=== PATIENT | female | born 1990 | race Caucasian/White ===

== ENCOUNTER 2017-03-22 13:48 | Inpatient (IN) | payer MEDICAID ==
[2017-03-22] MEDS ORDERED: Sodium Chloride 0.9% 10 ML Syringe FLUSH PRN ×2 (13:55→14:40)
[2017-03-22] MEDS ORDERED: Sodium Chloride 0.9% 1,000 ML IV SCH (14:00)
--- NOTE | 2017-03-22 14:07 | EDM.PDOC ---
ED HPI GENERAL MEDICAL PROBLEM - General Chief Complaint: [employer] Problem Stated Complaint: [facility] Time Seen by Provider: 03/22/17 13:55 Source of Information: Reports: Patient, EMS History Limitations: Reports: No Limitations - History of Present Illness INITIAL COMMENTS - FREE TEXT/NARRATIVE: The patient woke up with lower abdomen and pelvis pain this morning. This afternoon she passed out. [facility] brought her in and she had a BP in the 70s systolic. She got nearly 1.5Ls of fluid in route. Her BP did respond. They did give her fentanyl on the way here. She is not sure if she is . She is due for her period soon. She is with no history of ectopic . She has no nausea or vomiting. She has no dysuria. She still has her appendix and gallbladder. Onset: Sudden Duration: Hour(s): Location: Reports: Abdomen, Pelvis Quality: Reports: Sharp Severity: Severe Improves with: Reports: None Worsens with: Reports: None Context: Reports: Other (It woke her up) Associated Symptoms: Denies: Cough, Fever/Chills, Nausea/Vomiting, Shortness of Breath Abdomen Pain Score (Numeric/FACES): 5 - Related Data Allergies Allergy/AdvReac Type Severity Reaction Status Date / Time No Known Allergies Allergy Verified 03/22/17 13:49 Home Meds: Home Meds ALPRAZolam [Xanax] 0.25 mg PO DAILY PRN 03/22/17 [History] Escitalopram Oxalate [Lexapro] 25 mg PO DAILY 03/22/17 [History] Past Medical History - Past Health History Medical/Surgical History: Denies Medical/Surgical History Social & Family History - Tobacco Use Smoking Status *Q: Never Smoker Second Hand Smoke Exposure: No - Alcohol Use Days Per Week of Alcohol Use: 0 - Recreational Drug Use Recreational Drug Use: No ED ROS GENERAL - Review of Systems Review Of Systems: See Below Constitutional: Reports: No Symptoms HEENT: Reports: No Symptoms Respiratory: Reports: No Symptoms Cardiovascular: Reports: No Symptoms Endocrine: Reports: No Symptoms GI/Abdominal: Reports: Abdominal Pain. Denies: Diarrhea, Nausea, Vomiting : Reports: Other (Pelvic pain). Denies: Dysuria Musculoskeletal: Reports: No Symptoms ED EXAM, GI/ABD - Physical Exam Exam: See Below Exam Limited By: No Limitations General Appearance: Alert, Mild Distress Ears: Normal External Exam Nose: Normal Inspection Head: Atraumatic, Normocephalic Neck: Normal Inspection Respiratory/Chest: No Respiratory Distress, Lungs Clear, Normal Breath Sounds Cardiovascular: No Edema, No Murmur, Tachycardia GI/Abdominal Exam: Soft, No Organomegaly, Tender (Moderate tenderness to the lower abdomen) Course - Vital Signs Last Recorded V/S: Last Vital Signs Temp 98.3 F 03/22/17 13:50 Pulse 114 H 03/22/17 13:50 Resp 18 03/22/17 13:50 BP 90/58 L 03/22/17 13:50 Pulse Ox - Orders/Labs/Meds Orders: Active Orders 24 hr Category Date Time Status Peripheral IV Care [RC] . DIRECTED Care 03/22/17 13:56 Active PATIENT RETYPE [BBK] Stat Lab 03/22/17 13:57 Results RED BLOOD CELLS LP [BBK] Stat Lab 03/22/17 13:57 Results TYPE AND SCREEN [BBK] Stat Lab 03/22/17 13:57 Results UA W/MICROSCOPIC [URIN] Stat Lab 03/22/17 15:53 Results Sodium Chloride 0.9% [Normal Saline] 1,000 ml Med 03/22/17 14:00 Active IV ASDIRECTED Sodium Chloride 0.9% [Saline Flush] Med 03/22/17 13:55 Active 10 ml FLUSH ASDIRECTED PRN Sodium Chloride 0.9% [Saline Flush] Med 03/22/17 14:40 Active 10 ml FLUSH ONETIME PRN Peripheral IV Insertion Adult [OM.PC] Stat Oth 03/22/17 13:55 Ordered Transfuse PRBC [Transfuse Red Blood Cells] [COMM] Stat Oth 03/22/17 16:10 Ordered Medication Orders Sodium Chloride (Normal Saline) 1,000 mls @ 125 mls/hr IV ASDIRECTED [place] Last Admin: 03/22/17 14:38 Dose: 125 mls/hr Sodium Chloride (Saline Flush) 10 ml FLUSH ASDIRECTED PRN PRN Reason: Keep Vein Open Last Admin: 03/22/17 14:40 Dose: 10 ml Sodium Chloride (Saline Flush) 10 ml FLUSH ONETIME PRN PRN Reason: IV FLUSH Last Admin: 03/22/17 15:41 Dose: 10 ml Labs: Laboratory Tests 03/22/17 03/22/17 03/22/17 Range/Units 13:57 13:57 13:57 WBC 12.73 H (3.98-10.04) K/mm3 RBC 3.78 L (3.98-5.22) M/mm3 Hgb 10.2 L (11.2-15.7) gm/L Hct 31.1 L (34.1-44.9) % MCV 82.3 (79.4-94.8) fl MCH 27.0 (25.6-32.2) pg MCHC 32.8 (32.2-35.5) g/dl RDW Std Deviation 41.2 (36.4-46.3) fL Plt Count 206 (182-369) K/mm3 MPV 10.7 (9.4-12.3) fl Neut % (Auto) 83.9 H (34.0-71.1) % Lymph % (Auto) 8.2 L (19.3-51.7) % [place] % (Auto) 7.4 (4.7-12.5) % Eos % (Auto) 0.2 L (0.7-5.8) Baso % (Auto) 0.1 (0.1-1.2) % Neut # (Auto) 10.69 H (1.56-6.13) K/mm3 Lymph # (Auto) 1.05 L (1.18-3.74) K/mm3 [place] # (Auto) 0.94 H (0.24-0.36) K/mm3 Eos # (Auto) 0.02 L (0.04-0.36) K/mm3 Baso # (Auto) 0.01 (0.01-0.08) K/mm3 Manual Slide Review Abnormal smear Sodium 140 (136-145) mEq/L Potassium 4.9 (3.5-5.1) mEq/L Chloride 110 H (98-107) mEq/L Carbon Dioxide 22 (21-32) mEq/L Anion Gap 12.9 (5-15) BUN 13 (7-18) mg/dL Creatinine 0.7 (0.55-1.02) mg/dL Est Cr Clr Drug Dosing 95.48 mL/min Estimated GFR (MDRD) > 60 (>60) mL/min BUN/Creatinine Ratio 18.6 H (14-18) Glucose 100 (74-106) mg/dL Calcium 7.8 L (8.5-10.1) mg/dL Total Bilirubin 0.2 (0.2-1.0) mg/dL AST 20 (15-37) U/L ALT 24 (14-59) U/L Alkaline Phosphatase 43 L (46-116) U/L Total Protein 6.1 L (6.4-8.2) g/dl Albumin 3.0 L (3.4-5.0) g/dl Globulin 3.1 gm/dL Albumin/Globulin Ratio 1.0 (1-2) Lipase 174 (73-393) U/L HCG, Qual Negative (NEGATIVE) HCG, Quant mIU/mL Urine Color (Yellow) Urine Appearance (Clear) Urine pH (5.0-8.0) Ur Specific [place] (1.005-1.030) Urine Protein (Negative) Urine Glucose (UA) (Negative) Urine Ketones (Negative) Urine Occult Blood (Negative) Urine Nitrite (Negative) Urine Bilirubin (Negative) Urine Urobilinogen (0.2-1.0) Ur Leukocyte Esterase (Negative) Blood Type Gel Antibody Screen Crossmatch 03/22/17 03/22/17 03/22/17 Range/Units 13:57 13:57 15:53 WBC (3.98-10.04) K/mm3 RBC (3.98-5.22) M/mm3 Hgb (11.2-15.7) gm/L Hct (34.1-44.9) % MCV (79.4-94.8) fl MCH (25.6-32.2) pg MCHC (32.2-35.5) g/dl RDW Std Deviation (36.4-46.3) fL Plt Count (182-369) K/mm3 MPV (9.4-12.3) fl Neut % (Auto) (34.0-71.1) % Lymph % (Auto) (19.3-51.7) % [place] % (Auto) (4.7-12.5) % Eos % (Auto) (0.7-5.8) Baso % (Auto) (0.1-1.2) % Neut # (Auto) (1.56-6.13) K/mm3 Lymph # (Auto) (1.18-3.74) K/mm3 [place] # (Auto) (0.24-0.36) K/mm3 Eos # (Auto) (0.04-0.36) K/mm3 Baso # (Auto) (0.01-0.08) K/mm3 Manual Slide Review Sodium (136-145) mEq/L Potassium (3.5-5.1) mEq/L Chloride (98-107) mEq/L Carbon Dioxide (21-32) mEq/L Anion Gap (5-15) BUN (7-18) mg/dL Creatinine (0.55-1.02) mg/dL Est Cr Clr Drug Dosing mL/min Estimated GFR (MDRD) (>60) mL/min BUN/Creatinine Ratio (14-18) Glucose (74-106) mg/dL Calcium (8.5-10.1) mg/dL Total Bilirubin (0.2-1.0) mg/dL AST (15-37) U/L ALT (14-59) U/L Alkaline Phosphatase (46-116) U/L Total Protein (6.4-8.2) g/dl Albumin (3.4-5.0) g/dl Globulin gm/dL Albumin/Globulin Ratio (1-2) Lipase (73-393) U/L HCG, Qual (NEGATIVE) HCG, Quant < 1.0 mIU/mL Urine Color Light yellow (Yellow) Urine Appearance Cloudy H (Clear) Urine pH 6.0 (5.0-8.0) Ur Specific [place] 1.025 (1.005-1.030) Urine Protein 1+ H (Negative) Urine Glucose (UA) Negative (Negative) Urine Ketones Negative (Negative) Urine Occult Blood 3+ H (Negative) Urine Nitrite Positive H (Negative) Urine Bilirubin Negative (Negative) Urine Urobilinogen 0.2 (0.2-1.0) Ur Leukocyte Esterase 2+ H (Negative) Blood Type A POSITIVE Gel Antibody Screen Negative Crossmatch See Detail 03/22/17 Range/Units 16:19 WBC (3.98-10.04) K/mm3 RBC (3.98-5.22) M/mm3 Hgb 9.6 L (11.2-15.7) gm/L Hct (34.1-44.9) % MCV (79.4-94.8) fl MCH (25.6-32.2) pg MCHC (32.2-35.5) g/dl RDW Std Deviation (36.4-46.3) fL Plt Count (182-369) K/mm3 MPV (9.4-12.3) fl Neut % (Auto) (34.0-71.1) % Lymph % (Auto) (19.3-51.7) % [place] % (Auto) (4.7-12.5) % Eos % (Auto) (0.7-5.8) Baso % (Auto) (0.1-1.2) % Neut # (Auto) (1.56-6.13) K/mm3 Lymph # (Auto) (1.18-3.74) K/mm3 [place] # (Auto) (0.24-0.36) K/mm3 Eos # (Auto) (0.04-0.36) K/mm3 Baso # (Auto) (0.01-0.08) K/mm3 Manual Slide Review Sodium (136-145) mEq/L Potassium (3.5-5.1) mEq/L Chloride (98-107) mEq/L Carbon Dioxide (21-32) mEq/L Anion Gap (5-15) BUN (7-18) mg/dL Creatinine (0.55-1.02) mg/dL Est Cr Clr Drug Dosing mL/min Estimated GFR (MDRD) (>60) mL/min BUN/Creatinine Ratio (14-18) Glucose (74-106) mg/dL Calcium (8.5-10.1) mg/dL Total Bilirubin (0.2-1.0) mg/dL AST (15-37) U/L ALT (14-59) U/L Alkaline Phosphatase (46-116) U/L Total Protein (6.4-8.2) g/dl Albumin (3.4-5.0) g/dl Globulin gm/dL Albumin/Globulin Ratio (1-2) Lipase (73-393) U/L HCG, Qual (NEGATIVE) HCG, Quant mIU/mL Urine Color (Yellow) Urine Appearance (Clear) Urine pH (5.0-8.0) Ur Specific [place] (1.005-1.030) Urine Protein (Negative) Urine Glucose (UA) (Negative) Urine Ketones (Negative) Urine Occult Blood (Negative) Urine Nitrite (Negative) Urine Bilirubin (Negative) Urine Urobilinogen (0.2-1.0) Ur Leukocyte Esterase (Negative) Blood Type Gel Antibody Screen Crossmatch Meds: Medications Generic Name Dose Route Start Last Admin Trade Name Freq PRN Reason Stop Dose Admin Sodium Chloride 1,000 mls @ 125 mls/hr 03/22/17 14:00 03/22/17 14:38 Normal Saline IV 125 mls/hr ASDIRECTED [place] Administration Sodium Chloride 10 ml 03/22/17 13:55 03/22/17 14:40 Saline Flush FLUSH 10 ml ASDIRECTED PRN Administration Keep Vein Open Sodium Chloride 10 ml 03/22/17 14:40 03/22/17 15:41 Saline Flush FLUSH 10 ml ONETIME PRN Administration IV FLUSH Discontinued Medications Generic Name Dose Route Start Last Admin Trade Name Freq PRN Reason Stop Dose Admin Diatrizoate Meglum/Diatrizoate Sod 90 ml 03/22/17 14:40 03/22/17 15:41 Gastrografin 37% PO 03/22/17 14:41 90 ml ONETIME ONE Administration Hydromorphone HCl 0.5 mg 03/22/17 14:13 03/22/17 14:17 Dilaudid IVPUSH 03/22/17 14:14 0.5 mg ONETIME ONE Administration Hydromorphone HCl 0.5 mg 03/22/17 14:19 03/22/17 14:21 Dilaudid IVPUSH 03/22/17 14:20 0.5 mg ONETIME ONE Administration Hydromorphone HCl Confirm 03/22/17 14:24 03/22/17 14:39 Dilaudid Administered 03/22/17 14:25 Not Given Dose 0.5 mg .ROUTE .STK-MED ONE Hydromorphone HCl 0.5 mg 03/22/17 15:57 03/22/17 16:02 Dilaudid IVPUSH 03/22/17 15:58 0.5 mg ONETIME ONE Administration Iopamidol 100 ml 03/22/17 14:40 03/22/17 15:41 Isovue-300 (61%) IVPUSH 03/22/17 14:41 100 ml ONETIME ONE Administration Lorazepam 0.5 mg 03/22/17 16:34 Ativan IVPUSH 03/22/17 16:35 ONETIME ONE - Re-Assessments/Exams Free Text/Narrative Re-Assessment/Exam: 03/22/17 14:06 I ordered another IV and a 500mL bolus, labs, UA, type and cross and a transvaginal US. I am worried about ectopic . 03/22/17 14:26 Her HCG came back negative. I will get a CT of her abdomen and pelvis. 03/22/17 16:42 The US shows confusing adnexa with what appears to be mass within each adnexa versus a single adnexal mass extending across the midline. No intrauterine gestational sac is seen. If patient has positive test findings could represent ectopic with hematoma. The patient is not so we ahead with a CT of her abdomen and pelvis. The CT shows fluid around the liver and extending into the right paracolic gutter and into the pelvis. Soft tissue densities within both adnexa with Hounsfield unit measurements in the 60 range which could represent hematoma/ blood. As mentioned on recent US, please correlate if patient has positive test findings to represent ruptured ectopic . Findings could also represent a ruptured hemorrhagic cyst. Large renal stone within the left renal pelvis which is in good location to cause intermittent obstruction. This stone measures 1.5cm. No additional abnormality is appreciated. I called Dr Corral and she came to see the patient. She will take her for exploratory laporotomy. I had her type and screened. Her pain came back so I gave her more dilaudid 0.5mg IV. I also ordered 2 units of PRBCs. Her BP went down to the 90s systolic. When Dr Corral got here, her BP went up in the low 100s. We decided to hold the blood for now. The patient is anxious. I ordered ativan 0.5mg IV. The patient will got to the OR for exploratory laporotomy. Departure - Departure Time of Disposition: 16:55 Disposition: DC/Tfer to [facility] Condition: Serious Clinical Impression: Pelvic pain, Pelvic mass in female Abdominal pain Qualifiers: Abdominal location: lower abdomen, unspecified Qualified Code(s): R10.30 - Lower abdominal pain, unspecified Hypotension Qualifiers: Hypotension type: orthostatic hypotension Qualified Code(s): I95.1 - Orthostatic hypotension Anemia Qualifiers: Anemia type: unspecified type Qualified Code(s): D64.9 - Anemia, unspecified Intra-abdominal fluid Qualifiers: Ascites type: other type Qualified Code(s): R18.8 - Other ascites - Discharge Information - My Orders Last 24 Hours: My Active Orders 03/22/17 13:55 Sodium Chloride 0.9% [Saline Flush] 10 ml FLUSH ASDIRECTED PRN Peripheral IV Insertion Adult [OM.PC] Stat 03/22/17 13:56 Peripheral IV Care [RC] . DIRECTED 03/22/17 13:57 PATIENT RETYPE [BBK] Stat RED BLOOD CELLS LP [BBK] Stat TYPE AND SCREEN [BBK] Stat 03/22/17 14:00 Sodium Chloride 0.9% [Normal Saline] 1,000 ml IV ASDIRECTED 03/22/17 14:40 Sodium Chloride 0.9% [Saline Flush] 10 ml FLUSH ONETIME PRN 03/22/17 15:53 UA W/MICROSCOPIC [URIN] Stat 03/22/17 16:10 Transfuse PRBC [Transfuse Red Blood Cells] [COMM] Stat - Assessment/Plan Last 24 Hours: My Active Orders 03/22/17 13:55 Sodium Chloride 0.9% [Saline Flush] 10 ml FLUSH ASDIRECTED PRN Peripheral IV Insertion Adult [OM.PC] Stat 03/22/17 13:56 Peripheral IV Care [RC] . DIRECTED 03/22/17 13:57 PATIENT RETYPE [BBK] Stat RED BLOOD CELLS LP [BBK] Stat TYPE AND SCREEN [BBK] Stat 03/22/17 14:00 Sodium Chloride 0.9% [Normal Saline] 1,000 ml IV ASDIRECTED 03/22/17 14:40 Sodium Chloride 0.9% [Saline Flush] 10 ml FLUSH ONETIME PRN 03/22/17 15:53 UA W/MICROSCOPIC [URIN] Stat 03/22/17 16:10 Transfuse PRBC [Transfuse Red Blood Cells] [COMM] Stat
[2017-03-22] MEDS ORDERED: HYDROmorphone 0.5 MG/0.5 ML Syringe IVPUSH ONE ×3 (14:13→15:57)
[2017-03-22] MEDS ORDERED: HYDROmorphone 0.5 MG/0.5 ML Syringe ONE (14:24)
[2017-03-22] MEDS ORDERED: Diatrizoate Meglumine/Diatrizoate Sodium 37% 120 ML Bottle PO ONE (14:40)
[2017-03-22] MEDS ORDERED: Iopamidol 612 MG/ML 100 ML Bottle IVPUSH ONE (14:40)
--- NOTE | 2017-03-22 15:37 | US ---
First trimester obstetrical ultrasound: Multiple real-time images were obtained transvaginally. Comparison: No previous study. No intrauterine gestational sac is seen. Adnexa are confusing with left ovary not being seen. There appears to be a adnexal mass on both sides. Uncertain if this is just one area crossing the midline or represents a separate adnexal findings. There is no fluid seen within the pelvis. Impression: 1. Confusing adnexa with what appears to be mass within each adnexa versus a single adnexal mass extending across the midline. No intrauterine gestational sac is seen. If patient has positive test findings could represent ectopic with hematoma. Diagnostic code #5
--- NOTE | 2017-03-22 16:01 | CT ---
CT abdomen and pelvis Technique: Multiple axial sections were obtained from above the dome of the diaphragm inferiorly through the pubic symphysis. Intravenous and oral contrast was utilized. Delayed images were also obtained through the abdomen and pelvis. Findings: Fluid is identified around the liver extending into the paracolic gutter and into the pelvis. Soft tissue densities are seen within both adnexa. These have Hounsfield unit measurements into the 60s and could represent areas of blood/hematoma. Renal calculus is seen within the renal pelvis measuring 1.5 cm. This is in location to cause intermittent obstruction. Smaller nonobstructing calculus is seen within the inferior lower pole of the left kidney. Delayed images shows contrast excretion from both kidneys into the ureters and bladder. Pancreas is within normal limits. Liver shows no focal abnormality. Spleen appears within normal limits. Adrenal glands show no nodule. Aorta shows no aneurysmal dilatation. Kidneys show no abnormal calcifications. No additional pelvic abnormality is seen. Impression: 1. Fluid around the liver and extending into the right paracolic gutter and into the pelvis. 2. Soft tissue densities within both adnexa with Hounsfield unit measurements in the 60 range which could represent hematoma/blood. As mentioned on recent ultrasound, please correlate if patient has positive test findings to represent ruptured ectopic . Findings could also represent a ruptured hemorrhagic cyst. 3. Large renal stone within the left renal pelvis which is in good location to cause intermittent obstruction. This stone measures 1.5 cm. 3. No additional abnormality is appreciated. Diagnostic code #5
[2017-03-22] MEDS ORDERED: LORazepam 2 MG/ML MDV IVPUSH ONE (16:34)
--- NOTE | 2017-03-22 16:43 | PCM.HP ---
H&P History of Present Illness - General Date of Service: 03/22/17 Source of Information: Patient History Limitations: Reports: No Limitations - History of Present Illness Initial Comments - Free Text/Narative: Patient is a 26 y/o who presents today for acute episode of abdominal pain and syncopal episode. States she woke up this AM with cramping in her lower abdomen. This progressively became worse. Tried to treat the pain with a hot shower, but became lightheaded and threw up in the shower. She apparently afterwards had a syncopal episode per her mother. She was brought to the ER. While here she has had a CT scan and TVUS which has shown a complex pelvic mass. Concerns from radiology are for a possible bleeding hemorrhagic cyst. Her urine test and serum hCG are negative. Abdomen Pain Score (Numeric/FACES): 5 - Related Data Allergies/Adverse Reactions: Allergies Allergy/AdvReac Type Severity Reaction Status Date / Time No Known Allergies Allergy Verified 03/22/17 13:49 Home Medications: Home Meds ALPRAZolam [Xanax] 0.25 mg PO DAILY PRN 03/22/17 [History] Escitalopram Oxalate [Lexapro] 25 mg PO DAILY 03/22/17 [History] Past Medical History PST SPECIALIST History: Reports: , Spontaneous : 9 Para: 3 Psychiatric History: Reports: Depression - Past Surgical History Female Surgical History: Reports: D&C Social & Family History - Tobacco Use Smoking Status *Q: Never Smoker Second Hand Smoke Exposure: No - Caffeine Use Caffeine Use: Reports: Soda, Tea Other Caffeine Use: occassionally - Alcohol Use Alcohol Use History: No Days Per Week of Alcohol Use: 0 - Recreational Drug Use Recreational Drug Use: No H&P Review of Systems - Review of Systems: Review Of Systems: See Below General: Reports: No Symptoms Pulmonary: Reports: Shortness of Breath Cardiovascular: Reports: No Symptoms Gastrointestinal: Reports: Abdominal Pain, Nausea Genitourinary: Reports: No Symptoms Musculoskeletal: Reports: No Symptoms Psychiatric: Reports: Anxiety Exam - Exam Exam: See Below - Vital Signs Vital Signs: Last Vital Signs Temp 36.8 C 03/22/17 13:50 Pulse 114 H 03/22/17 13:50 Resp 18 03/22/17 13:50 BP 90/58 L 03/22/17 13:50 Pulse Ox Weight: 54.431 kg - Exam General: Alert, Oriented, Cooperative Lungs: Clear to Auscultation, Normal Respiratory Effort Cardiovascular: Regular Rhythm, Tachycardia GI/Abdominal Exam: Soft, Rebound, Tender (Female) Exam: Other (Deferred to OR) Extremities: Normal Inspection Skin: Warm, Dry, Intact - Patient Data Lab Results Last 24 hrs: Laboratory Results - last 24 hr 03/22/17 03/22/17 03/22/17 Range/Units 13:57 13:57 13:57 WBC 12.73 H (3.98-10.04) K/mm3 RBC 3.78 L (3.98-5.22) M/mm3 Hgb 10.2 L (11.2-15.7) gm/L Hct 31.1 L (34.1-44.9) % MCV 82.3 (79.4-94.8) fl MCH 27.0 (25.6-32.2) pg MCHC 32.8 (32.2-35.5) g/dl RDW Std Deviation 41.2 (36.4-46.3) fL Plt Count 206 (182-369) K/mm3 MPV 10.7 (9.4-12.3) fl Neut % (Auto) 83.9 H (34.0-71.1) % Lymph % (Auto) 8.2 L (19.3-51.7) % Sampson % (Auto) 7.4 (4.7-12.5) % Eos % (Auto) 0.2 L (0.7-5.8) Baso % (Auto) 0.1 (0.1-1.2) % Neut # (Auto) 10.69 H (1.56-6.13) K/mm3 Lymph # (Auto) 1.05 L (1.18-3.74) K/mm3 Sampson # (Auto) 0.94 H (0.24-0.36) K/mm3 Eos # (Auto) 0.02 L (0.04-0.36) K/mm3 Baso # (Auto) 0.01 (0.01-0.08) K/mm3 Manual Slide Review Abnormal smear Sodium 140 (136-145) mEq/L Potassium 4.9 (3.5-5.1) mEq/L Chloride 110 H (98-107) mEq/L Carbon Dioxide 22 (21-32) mEq/L Anion Gap 12.9 (5-15) BUN 13 (7-18) mg/dL Creatinine 0.7 (0.55-1.02) mg/dL Est Cr Clr Drug Dosing 95.48 mL/min Estimated GFR (MDRD) > 60 (>60) mL/min BUN/Creatinine Ratio 18.6 H (14-18) Glucose 100 (74-106) mg/dL Calcium 7.8 L (8.5-10.1) mg/dL Total Bilirubin 0.2 (0.2-1.0) mg/dL AST 20 (15-37) U/L ALT 24 (14-59) U/L Alkaline Phosphatase 43 L (46-116) U/L Total Protein 6.1 L (6.4-8.2) g/dl Albumin 3.0 L (3.4-5.0) g/dl Globulin 3.1 gm/dL Albumin/Globulin Ratio 1.0 (1-2) Lipase 174 (73-393) U/L HCG, Qual Negative (NEGATIVE) HCG, Quant mIU/mL Urine Color (Yellow) Urine Appearance (Clear) Urine pH (5.0-8.0) Ur Specific [place] (1.005-1.030) Urine Protein (Negative) Urine Glucose (UA) (Negative) Urine Ketones (Negative) Urine Occult Blood (Negative) Urine Nitrite (Negative) Urine Bilirubin (Negative) Urine Urobilinogen (0.2-1.0) Ur Leukocyte Esterase (Negative) Blood Type Gel Antibody Screen Crossmatch 03/22/17 03/22/17 03/22/17 Range/Units 13:57 13:57 15:53 WBC (3.98-10.04) K/mm3 RBC (3.98-5.22) M/mm3 Hgb (11.2-15.7) gm/L Hct (34.1-44.9) % MCV (79.4-94.8) fl MCH (25.6-32.2) pg MCHC (32.2-35.5) g/dl RDW Std Deviation (36.4-46.3) fL Plt Count (182-369) K/mm3 MPV (9.4-12.3) fl Neut % (Auto) (34.0-71.1) % Lymph % (Auto) (19.3-51.7) % Sampson % (Auto) (4.7-12.5) % Eos % (Auto) (0.7-5.8) Baso % (Auto) (0.1-1.2) % Neut # (Auto) (1.56-6.13) K/mm3 Lymph # (Auto) (1.18-3.74) K/mm3 Sampson # (Auto) (0.24-0.36) K/mm3 Eos # (Auto) (0.04-0.36) K/mm3 Baso # (Auto) (0.01-0.08) K/mm3 Manual Slide Review Sodium (136-145) mEq/L Potassium (3.5-5.1) mEq/L Chloride (98-107) mEq/L Carbon Dioxide (21-32) mEq/L Anion Gap (5-15) BUN (7-18) mg/dL Creatinine (0.55-1.02) mg/dL Est Cr Clr Drug Dosing mL/min Estimated GFR (MDRD) (>60) mL/min BUN/Creatinine Ratio (14-18) Glucose (74-106) mg/dL Calcium (8.5-10.1) mg/dL Total Bilirubin (0.2-1.0) mg/dL AST (15-37) U/L ALT (14-59) U/L Alkaline Phosphatase (46-116) U/L Total Protein (6.4-8.2) g/dl Albumin (3.4-5.0) g/dl Globulin gm/dL Albumin/Globulin Ratio (1-2) Lipase (73-393) U/L HCG, Qual (NEGATIVE) HCG, Quant < 1.0 mIU/mL Urine Color Light yellow (Yellow) Urine Appearance Cloudy H (Clear) Urine pH 6.0 (5.0-8.0) Ur Specific [place] 1.025 (1.005-1.030) Urine Protein 1+ H (Negative) Urine Glucose (UA) Negative (Negative) Urine Ketones Negative (Negative) Urine Occult Blood 3+ H (Negative) Urine Nitrite Positive H (Negative) Urine Bilirubin Negative (Negative) Urine Urobilinogen 0.2 (0.2-1.0) Ur Leukocyte Esterase 2+ H (Negative) Blood Type A POSITIVE Gel Antibody Screen Negative Crossmatch See Detail 03/22/17 Range/Units 16:19 WBC (3.98-10.04) K/mm3 RBC (3.98-5.22) M/mm3 Hgb 9.6 L (11.2-15.7) gm/L Hct (34.1-44.9) % MCV (79.4-94.8) fl MCH (25.6-32.2) pg MCHC (32.2-35.5) g/dl RDW Std Deviation (36.4-46.3) fL Plt Count (182-369) K/mm3 MPV (9.4-12.3) fl Neut % (Auto) (34.0-71.1) % Lymph % (Auto) (19.3-51.7) % Sam[place] % (Auto) (4.7-12.5) % Eos % (Auto) (0.7-5.8) Baso % (Auto) (0.1-1.2) % Neut # (Auto) (1.56-6.13) K/mm3 Lymph # (Auto) (1.18-3.74) K/mm3 Sampson # (Auto) (0.24-0.36) K/mm3 Eos # (Auto) (0.04-0.36) K/mm3 Baso # (Auto) (0.01-0.08) K/mm3 Manual Slide Review Sodium (136-145) mEq/L Potassium (3.5-5.1) mEq/L Chloride (98-107) mEq/L Carbon Dioxide (21-32) mEq/L Anion Gap (5-15) BUN (7-18) mg/dL Creatinine (0.55-1.02) mg/dL Est Cr Clr Drug Dosing mL/min Estimated GFR (MDRD) (>60) mL/min BUN/Creatinine Ratio (14-18) Glucose (74-106) mg/dL Calcium (8.5-10.1) mg/dL Total Bilirubin (0.2-1.0) mg/dL AST (15-37) U/L ALT (14-59) U/L Alkaline Phosphatase (46-116) U/L Total Protein (6.4-8.2) g/dl Albumin (3.4-5.0) g/dl Globulin gm/dL Albumin/Globulin Ratio (1-2) Lipase (73-393) U/L HCG, Qual (NEGATIVE) HCG, Quant mIU/mL Urine Color (Yellow) Urine Appearance (Clear) Urine pH (5.0-8.0) Ur Specific [place] (1.005-1.030) Urine Protein (Negative) Urine Glucose (UA) (Negative) Urine Ketones (Negative) Urine Occult Blood (Negative) Urine Nitrite (Negative) Urine Bilirubin (Negative) Urine Urobilinogen (0.2-1.0) Ur Leukocyte Esterase (Negative) Blood Type Gel Antibody Screen Crossmatch Result Diagrams: 03/22/17 16:19 03/22/17 13:57 *Q Meaningful Use (ADM) - VTE *Q VTE Criteria *Q: - Stroke *Q Stroke Criteria *Q: - AMI *Q AMI Criteria *Q: - Problem List (1) Pelvic mass SNOMED Code(s): 77023608 ICD Code: R19.00 - INTRA-ABD AND PELVIC SWELLING, MASS AND LUMP, UNSP SITE Status: Acute Current Visit: Yes (2) Abdominal pain SNOMED Code(s): 79901895 ICD Code: R10.9 - UNSPECIFIED ABDOMINAL PAIN Status: Acute Current Visit : Yes Qualifiers: Abdominal location: lower abdomen, unspecified Qualified Code(s): R10.30 - Lower abdominal pain, unspecified Problem List Initiated/Reviewed/Updated: Yes Orders Last 24hrs: Active Orders 24 hr Category Date Time Status Peripheral IV Care [RC] . DIRECTED Care 03/22/17 13:56 Active PATIENT RETYPE [BBK] Stat Lab 03/22/17 13:57 Results RED BLOOD CELLS LP [BBK] Stat Lab 03/22/17 13:57 Results TYPE AND SCREEN [BBK] Stat Lab 03/22/17 13:57 Results UA W/MICROSCOPIC [URIN] Stat Lab 03/22/17 15:53 Results Sodium Chloride 0.9% [Normal Saline] 1,000 ml Med 03/22/17 14:00 Active IV ASDIRECTED Sodium Chloride 0.9% [Saline Flush] Med 03/22/17 13:55 Active 10 ml FLUSH ASDIRECTED PRN Sodium Chloride 0.9% [Saline Flush] Med 03/22/17 14:40 Active 10 ml FLUSH ONETIME PRN Peripheral IV Insertion Adult [OM.PC] Stat Oth 03/22/17 13:55 Ordered Transfuse PRBC [Transfuse Red Blood Cells] [COMM] Stat Oth 03/22/17 16:10 Ordered Medication Orders Sodium Chloride (Normal Saline) 1,000 mls @ 125 mls/hr IV ASDIRECTED [place] Last Admin: 03/22/17 14:38 Dose: 125 mls/hr Sodium Chloride (Saline Flush) 10 ml FLUSH ASDIRECTED PRN PRN Reason: Keep Vein Open Last Admin: 03/22/17 14:40 Dose: 10 ml Sodium Chloride (Saline Flush) 10 ml FLUSH ONETIME PRN PRN Reason: IV FLUSH Last Admin: 03/22/17 15:41 Dose: 10 ml Assessment/Plan Comment:: 26 y/o presents for abdominal pain in setting of hypotension, syncopal episode, and also radiology findings of pelvic mass. hCG negative. Possible this is a hemorrhagic cyst, possible torsion, etc. Given somewhat unclear picture and patient's pain recommend proceeding with diagnostic laparoscopy. Surgery to be performed to be determined intra-op. Possible cystectomy, vs oophorectomy, vs conversion to open/other procedures as indicated. she agrees. Consent reviewed and signed. Anesthesia aware.
--- NOTE | 2017-03-22 16:47 | PCM.PREANE ---
Preanesthetic Assessment - Anesthesia/Transfusion/Family Hx Anesthesia History: Prior Anesthesia Without Reaction Family History of Anesthesia Reaction: Yes Transfusion History: No Prior Transfusion(s) Intubation History: Unknown - Review of Systems General: No Symptoms Pulmonary: No Symptoms Cardiovascular: No Symptoms Gastrointestinal: Abdominal Pain Neurological: No Symptoms Other: Reports: Anxiety - Physical Assessment NPO Status Date: 03/21/17 NPO Status Time: 19:30 (Solid food. ) Respiratory Rate: 18 Vital Signs: Last Vital Signs Temp 36.8 C 03/22/17 13:50 Pulse 114 H 03/22/17 13:50 Resp 18 03/22/17 13:50 BP 90/58 L 03/22/17 13:50 Pulse Ox Height: 1.57 m Weight: 54.431 kg ASA Class: 1E Mental Status: Alert & Oriented x3 Airway Class: Mallampati = 1 Dentition: Reports: Normal Dentition (Braces noted) Thyro-Mental Finger Breadths: 3 Mouth Opening Finger Breadths: 3 ROM/Head Extension: Full Lungs: Clear to Auscultation, Normal Respiratory Effort Cardiovascular: Regular Rate, Regular Rhythm - Lab Values: Laboratory Last Values WBC 12.73 K/mm3 (3.98-10.04) H 03/22/17 13:57 RBC 3.78 M/mm3 (3.98-5.22) L 03/22/17 13:57 Hgb 9.6 gm/L (11.2-15.7) L 03/22/17 16:19 Hct 31.1 % (34.1-44.9) L 03/22/17 13:57 MCV 82.3 fl (79.4-94.8) 03/22/17 13:57 MCH 27.0 pg (25.6-32.2) 03/22/17 13:57 MCHC 32.8 g/dl (32.2-35.5) 03/22/17 13:57 RDW Std Deviation 41.2 fL (36.4-46.3) 03/22/17 13:57 Plt Count 206 K/mm3 (182-369) 03/22/17 13:57 MPV 10.7 fl (9.4-12.3) 03/22/17 13:57 Neut % (Auto) 83.9 % (34.0-71.1) H 03/22/17 13:57 Lymph % (Auto) 8.2 % (19.3-51.7) L 03/22/17 13:57 [place] % (Auto) 7.4 % (4.7-12.5) 03/22/17 13:57 Eos % (Auto) 0.2 (0.7-5.8) L 03/22/17 13:57 Baso % (Auto) 0.1 % (0.1-1.2) 03/22/17 13:57 Neut # (Auto) 10.69 K/mm3 (1.56-6.13) H 03/22/17 13:57 Lymph # (Auto) 1.05 K/mm3 (1.18-3.74) L 03/22/17 13:57 [place] # (Auto) 0.94 K/mm3 (0.24-0.36) H 03/22/17 13:57 Eos # (Auto) 0.02 K/mm3 (0.04-0.36) L 03/22/17 13:57 Baso # (Auto) 0.01 K/mm3 (0.01-0.08) 03/22/17 13:57 Manual Slide Review Abnormal smear 03/22/17 13:57 Sodium 140 mEq/L (136-145) 03/22/17 13:57 Potassium 4.9 mEq/L (3.5-5.1) 03/22/17 13:57 Chloride 110 mEq/L (98-107) H 03/22/17 13:57 Carbon Dioxide 22 mEq/L (21-32) 03/22/17 13:57 Anion Gap 12.9 (5-15) 03/22/17 13:57 BUN 13 mg/dL (7-18) 03/22/17 13:57 Creatinine 0.7 mg/dL (0.55-1.02) 03/22/17 13:57 Est Cr Clr Drug Dosing 95.48 mL/min 03/22/17 13:57 Estimated GFR (MDRD) > 60 mL/min (>60) 03/22/17 13:57 BUN/Creatinine Ratio 18.6 (14-18) H 03/22/17 13:57 Glucose 100 mg/dL (74-106) 03/22/17 13:57 Calcium 7.8 mg/dL (8.5-10.1) L 03/22/17 13:57 Total Bilirubin 0.2 mg/dL (0.2-1.0) 03/22/17 13:57 AST 20 U/L (15-37) 03/22/17 13:57 ALT 24 U/L (14-59) 03/22/17 13:57 Alkaline Phosphatase 43 U/L (46-116) L 03/22/17 13:57 Total Protein 6.1 g/dl (6.4-8.2) L 03/22/17 13:57 Albumin 3.0 g/dl (3.4-5.0) L 03/22/17 13:57 Globulin 3.1 gm/dL 03/22/17 13:57 Albumin/Globulin Ratio 1.0 (1-2) 03/22/17 13:57 Lipase 174 U/L (73-393) 03/22/17 13:57 HCG, Qual Negative (NEGATIVE) 03/22/17 13:57 HCG, Quant < 1.0 mIU/mL 03/22/17 13:57 Urine Color Light yellow (Yellow) 03/22/17 15:53 Urine Appearance Cloudy (Clear) H 03/22/17 15:53 Urine pH 6.0 (5.0-8.0) 03/22/17 15:53 Ur Specific [place] 1.025 (1.005-1.030) 03/22/17 15:53 Urine Protein 1+ (Negative) H 03/22/17 15:53 Urine Glucose (UA) Negative (Negative) 03/22/17 15:53 Urine Ketones Negative (Negative) 03/22/17 15:53 Urine Occult Blood 3+ (Negative) H 03/22/17 15:53 Urine Nitrite Positive (Negative) H 03/22/17 15:53 Urine Bilirubin Negative (Negative) 03/22/17 15:53 Urine Urobilinogen 0.2 (0.2-1.0) 03/22/17 15:53 Ur Leukocyte Esterase 2+ (Negative) H 03/22/17 15:53 Blood Type A POSITIVE 03/22/17 13:57 Gel Antibody Screen Negative 03/22/17 13:57 Crossmatch See Detail 03/22/17 13:57 - Allergies Allergies/Adverse Reactions: Allergies Allergy/AdvReac Type Severity Reaction Status Date / Time No Known Allergies Allergy Verified 03/22/17 13:49 - Blood Blood Available: Yes Product(s) Available: PRBC - Acknowledgements Anesthesia Type Planned: General Anesthesia Pt an Appropriate Candidate for the Planned Anesthesia: Yes Alternatives and Risks of Anesthesia Discussed w Pt/Guardian: Yes Pt/Guardian Understands and Agrees with Anesthesia Plan: Yes PreAnesthesia Questionnaire - Past Health History Medical/Surgical History: Denies Medical/Surgical History 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: , 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 Psychiatric History: Reports: Depression - Past Surgical History Female Surgical History: Reports: D&C - SUBSTANCE USE Smoking Status *Q: Never Smoker Second Hand Smoke Exposure: No Days Per Week of Alcohol Use: 0 Recreational Drug Use History: No - HOME MEDS Home Medications: Home Meds ALPRAZolam [Xanax] 0.25 mg PO DAILY PRN 03/22/17 [History] Escitalopram Oxalate [Lexapro] 25 mg PO DAILY 03/22/17 [History] - CURRENT (IN HOUSE) MEDS Current Meds: Current Medications Sodium Chloride (Normal Saline) 1,000 mls @ 125 mls/hr IV ASDIRECTED [place] Last Admin: 03/22/17 14:38 Dose: 125 mls/hr Sodium Chloride (Saline Flush) 10 ml FLUSH ASDIRECTED PRN PRN Reason: Keep Vein Open Last Admin: 03/22/17 14:40 Dose: 10 ml Sodium Chloride (Saline Flush) 10 ml FLUSH ONETIME PRN PRN Reason: IV FLUSH Last Admin: 03/22/17 15:41 Dose: 10 ml Discontinued Medications Diatrizoate Meglum/Diatrizoate Sod (Gastrografin 37%) 90 ml PO ONETIME ONE Stop: 03/22/17 14:41 Last Admin: 03/22/17 15:41 Dose: 90 ml Hydromorphone HCl (Dilaudid) 0.5 mg IVPUSH ONETIME ONE Stop: 03/22/17 14:14 Last Admin: 03/22/17 14:17 Dose: 0.5 mg Hydromorphone HCl (Dilaudid) 0.5 mg IVPUSH ONETIME ONE Stop: 03/22/17 14:20 Last Admin: 03/22/17 14:21 Dose: 0.5 mg Hydromorphone HCl (Dilaudid) Confirm Administered Dose 0.5 mg .ROUTE .STK-MED ONE Stop: 03/22/17 14:25 Last Admin: 03/22/17 14:39 Dose: Not Given Hydromorphone HCl (Dilaudid) 0.5 mg IVPUSH ONETIME ONE Stop: 03/22/17 15:58 Last Admin: 03/22/17 16:02 Dose: 0.5 mg Iopamidol (Isovue-300 (61%)) 100 ml IVPUSH ONETIME ONE Stop: 03/22/17 14:41 Last Admin: 03/22/17 15:41 Dose: 100 ml Lorazepam (Ativan) 0.5 mg IVPUSH ONETIME ONE Stop: 03/22/17 16:35
[2017-03-22] MEDS ORDERED: Bupivacaine 0.5% 30 ML SDV ONE (16:49)
[2017-03-22] MEDS ORDERED: Propofol 200 MG/20 ML SDV ONE ×2 (17:10→19:18)
[2017-03-22] MEDS ORDERED: Ketamine 500 mg/10 ML MDV ONE (17:10)
[2017-03-22] MEDS ORDERED: fentaNYL 250 MCG/5 ML SDV ONE (17:10)
[2017-03-22] MEDS ORDERED: Rocuronium 50 MG/5 ML Vial ONE (18:06)
[2017-03-22] MEDS ORDERED: Dexamethasone 4 MG/ML 5 ML MDV ONE (18:07)
[2017-03-22] MEDS ORDERED: Lidocaine 1% 4 ML ONE (18:07)
[2017-03-22] MEDS ORDERED: Neostigmine Methylsulfate 1 MG/ML 5 ML Syringe ONE (18:07)
[2017-03-22] MEDS ORDERED: Ondansetron 4 MG/2 ML SDV ONE ×2 (18:07→19:45)
[2017-03-22] MEDS ORDERED: HYDROmorphone 1 MG/ML Syringe ONE (19:30)
[2017-03-22] MEDS ORDERED: ePHEDrine 50 MG/ML SDV ONE (19:32)
[2017-03-22] MEDS ORDERED: Phenylephrine 1% 10 MG/ML SDV ONE (19:32)
[2017-03-22] MEDS ORDERED: Sodium Chloride 0.9% 1,000 ML ONE ×2 (19:32)
[2017-03-22] MEDS ORDERED: fentaNYL 100 MCG/2 ML SDV ONE (19:45)
[2017-03-22] MEDS ORDERED: diphenhydrAMINE 50 MG/ML SDV ONE (19:49)
[2017-03-22] MEDS ORDERED: Ketorolac 30 MG/ML SDV ONE (19:57)
--- NOTE | 2017-03-22 20:08 | PCM.POSTAN ---
POST ANESTHESIA ASSESSMENT - MENTAL STATUS Mental Status: Alert, Oriented - VITAL SIGNS Pulse Rate: 90 SaO2: 100 Resp Rate: 16 Blood Pressure: 89/52 Temperature: 37.3 C - RESPIRATORY Respiratory Status: Respiratory Rate WNL, Airway Patent, O2 Saturation Stable - CARDIOVASCULAR CV Status: Pulse Rate WNL, Blood Pressure Stable - GASTROINTESTINAL GI Status: No Symptoms - PAIN Pain Score: 0 - POST OP HYDRATION Hydration Status: Adequate & Stable
--- NOTE | 2017-03-22 20:10 | PCM.OPNOTE ---
- General Post-Op/Procedure Note Date of Surgery/Procedure: 03/22/17 Operative Procedure(s): Diagnostic laparoscopy. Evacuation of hemoperitoneum. Cauterization of left ruptured hemorrhagic cyst. Right salpingo-oophorectomy Findings: Intra-abdominal evaluation with findings of large hemoperitoneum. Left ovary with findings of ruptured, bleeding hemorrhagic cyst. Right ovary enlarged to about 5 x 5 cm and very firm/solid without discernable cyst or cystic component. Pre Op Diagnosis: Abdominal pain, hypotension, tachycarida - concerns for hemoperitoneum Post-Op Diagnosis: Ruptured left hemorrhagic ovarian cyst. Solid right ovarian mass Anesthesia Technique: General ET Tube Primary Surgeon: Rachel Corral Anesthesia Provider: Sugey Romero Pathology: Right ovary and fallopian tube sent to pathology for further evaluation Fluid Replacement, Intraop: 1,900 Output, Urine Amount: 300 EBL in mLs: 500 Complications: None Condition: Good Free Text/Narrative:: The risks, benefits, indications, potential complications, and alternatives were explained to the patient and informed consent obtained. The patient was taken to the Operating Room where general anesthesia was induced without complication. The patient was placed in dorsal lithotomy with Hira Stirrups. The patient was then prepped and draped in the usual sterile fashion. A sterile bivalve speculum was placed into the vagina and the anterior lip of the cervix was grasped with a single tooth tenaculum. A [employer] uterine manipulator was then advanced into the cervix and attached to the cervix to allow uterine manipulation throughout the procedure. The single tooth tenaculum was removed. The speculum was removed from the vagina. A Hawk catheter was placed in the bladder. Attention was then turned to the patients abdomen where a Veress needle was inserted into the abdomen while tenting the abdominal wall. Intraabdominal placement was confirmed with a drop test using a saline filled syringe and low intraabdominal pressure on low flow. A vertical infraumbilical incision was made in the umbilical fold and the 5 mm blunt trocar was inserted with the 5 mm laparoscope inserted through the trocar for direct visualization of abdominal entry through the clear view lens. Once intraabdominal placement was confirmed, the blunt obturator was removed and the laparoscope was inserted and exam of the patient's abdomen revealed the findings detailed above. Attention was turned to placement of the accessory ports. Both ports were placed approximately 10 cm lateral and 2-3 cm below the level of the first incision. A 5 mm skin incision was made in the left lower quadrant and a 5 mm trocar was inserted into the abdomen under direct visualization with care to avoid the abdominal wall vasculature. A second port was placed through a 10 mm skin incision in the right lower quadrant. A 10 mm trocar was inserted into the abdomen under direct visualization with care to avoid the abdominal wall vasculature. Blunt graspers and probes were used to further examine the pelvis by sweeping bowel away from the dissection field and elevating the adnexal structures. First evacuation of existing hemoperitoneum was done with a suction legal transcriptionist. Approximately 500 cc of blood and clot removed from the pelvis. Next the left ovary was elevated which identified site of bleeding/ruptured hemorrhagic cyst. This cyst was opened further with the aid of the Ligasure. Edges of the ovarian cyst were sequentially cauterized and monopolar cautery was used within the cyst cavity. Hemostasis noted at this time. To ensure resolution of bleeding a small amount of Emre Seal was placed in the remaining cyst cavity while remainder of procedure carried out. The right ovary was elevated and appeared abnormal due to size/consistency. Decision made to remove ovary and fallopian tube. The ovary was elevated with a blunt grasper and the right ureter was easily identified. The right infundibulopelvic ligament was grasped with the Ligasure device and doubly burned and then transected. The Ligasure was then used to cauterize and transect along the fallopian tube from the level of the ovary to the uterine cornua. Ligasure then used to cauterize the uterovarian ligament. Lastly the Ligasure was used to cauterize and transect across the fallopian tube and remaining utero-ovarian ligament at the cornua thus freeing the adnexa. An Endocatch bag was placed through the RLQ port the adnexa was placed into the bag under direct visualization. The bag was then elevated to the anterior abdominal wall and closed. A eden clamp was used to stretch the fascia of the RLQ port, but due to consistency/firmness of ovary it was still difficult to mobilize. A del castillo scissors was used to slightly extend the fascia portion of incision both laterally and to the midline. Bag again elevated and ovary removed in a piecemeal fashion using an 11 blade to help core/decompress ovary. Attention was turned back to the pelvis where irrigation was performed and hemostasis was confirmed of bilateral dissection beds. Remaining Emre seal placed over bed of hemorrhagic cyst. The right and left lower quadrant trocars were then removed under direct visualization. The pneumoperitoneum was allowed to escape. The umbilical trocar was removed and lastly the camera was removed from the abdomen under direct visualization to confirm no herniation into the port site. The fascia of the left lower quadrant trocar site was grasped wtih a eden clamp and closed with a running 0 vicryl suture. Slight bleeding noted from subcutaneous tissue was was controlled with an additional suture of 0 vicryl. The skin incisions were re-approximated with 4-0 Monocryl in a running subcuticular fashion. Dermabond was also used to seal the incisions. Hemostasis was excellent. The vaginal instruments and Hawk catheter were all removed and hemostasis was adequate. All sponge, lap, needle, and instrument counts were correct x 2.The patient tolerated the procedure well and there were no complications.
[2017-03-22] MEDS ORDERED: Haloperidol Lactate 5 MG/ML SDV IVPUSH ONE (20:36)
[2017-03-22] MEDS ORDERED: fentaNYL 100 MCG/2 ML SDV IVPUSH PRN (20:36)
[2017-03-22] MEDS ORDERED: Midazolam 1 MG/ML 2 ML SDV IVPUSH PRN (20:36)
[2017-03-22] MEDS ORDERED: HYDROmorphone 0.5 MG/0.5 ML Syringe IVPUSH PRN (20:36)
[2017-03-22] MEDS ORDERED: Ondansetron 4 MG/2 ML SDV IVPUSH PRN (21:43)
[2017-03-22] MEDS ORDERED: Morphine 2 MG/ML Syringe IVPUSH PRN (21:43)
[2017-03-22] MEDS: Acetaminophen/oxyCODONE 325-5 MG Tab PO PRN (22:04)
[2017-03-23] MEDS: Docusate Sodium 100 MG Cap PO SCH ×2 (00:14→09:18)
--- NOTE | 2017-03-23 00:56 | PCM.SN ---
- Free Text/Narrative Note: [id number] Prior to start of case patient with tachycardia. HR did somewhat in the OR with IVF and transfusion of 1 unit PRBC, but in PACU began to increase. Asked med surg staff to call if HR ever consistently above 110. Was called for this reason. BP otherwise appropriate. Hb obtained and 10.8 from 9.6 in ER. When re-reviewing labs it is now noted that in the ER patient had a UA with blood, leukocyte esterase, and also nitrites. Will begin treatment with ceftriaxone as possible this is contributing to tachycardia. Otherwise will repeat CBC in AM. Urine culture to be added on to previous specimen. Rachel Corral MD
[2017-03-23] MEDS: Acetaminophen/oxyCODONE 325-5 MG Tab PO PRN ×3 (01:43→10:18)
--- NOTE | 2017-03-23 08:05 | PCM.DCSUM1 ---
Discharge Summary - Discharge Data Discharge Date: 03/23/17 Discharge Disposition: Home, Self-Care 01 Condition: Good - Discharge Diagnosis/Problem(s) (1) Hypotension SNOMED Code(s): 25711923 ICD Code: I95.9 - HYPOTENSION, UNSPECIFIED Status: Acute Qualifiers: Hypotension type: other hypotension type Qualified Code(s): I95.89 - Other hypotension (2) Pelvic mass SNOMED Code(s): 84520751 ICD Code: R19.00 - INTRA-ABD AND PELVIC SWELLING, MASS AND LUMP, UNSP SITE Status: Acute (3) Abdominal pain SNOMED Code(s): 31757525 ICD Code: R10.9 - UNSPECIFIED ABDOMINAL PAIN Status: Acute Qualifiers: Abdominal location: lower abdomen, unspecified Qualified Code(s): R10.30 - Lower abdominal pain, unspecified (4) Hemoperitoneum SNOMED Code(s): 741365814 ICD Code: K66.1 - HEMOPERITONEUM Status: Acute (5) Blood transfusion during current hospitalization SNOMED Code(s): 260705022 ICD Code: [id number] - Status: Acute (6) Ovarian bleed, left SNOMED Code(s): 31320990 ICD Code: N83.8 - OTH NONINFLAMMATORY DISORD OF OVARY, FALLOP AND BROAD LIGMT Status: Acute (7) Ovarian mass, right SNOMED Code(s): 142732770 ICD Code: N83.9 - NONINFLAMMATORY DISORD OF OVARY, FALLOP & BROAD LIGMT, UNSP Status: Acute - Patient Summary/Data Operative Procedure(s) Performed: Diagnostic laparoscopy. Evacuation of hemoperitoneum. Cauterization of left ruptured hemorrhagic cyst. Right salpingo-oophorectomy Complications: None Consults: None Recommended Follow-up Testing/Procedures: Follow up in 1-2 weeks for a post op check Hospital Course: 26 y/o who presented to ER after abdominal pain and syncopal episode. Found to be hypotensive and CT scan with findings of pelvic mass and likely hemoperitoneum. She was taken to the OR where diagnostic laparoscopy confirmed large hemoperitoneum and findings of a ruptured and bleeding left sided hemorrhagic ovarian cyst. Hemoperitoneum was evacuated and bleeding cyst cauterized/controlled. Also during intra-abdominal evaluation a large and irregular right ovarian mass was identified. RSO performed. See operative note. During surgery she did receive 1 unit of PRBC. Also of note, it was seen that initial UA in the ER demonstrated findings suggestive of infection. She was started on IV ceftriaxone and received 2 doses in the hospital. She otherwise did well and was meeting all goals on POD#1 and thus was discharged to home - Patient Instructions Diet: Regular Diet as Tolerated Activity: No Lifting Over 20 Pounds Driving: Do Not Drive (While taking narcotics) Showering/Bathing: May Shower, No Tub Bathing/Swimming Wound/Incision Care: Keep Operative Site/Wound Site Clean and Dry Notify Provider of: Fever, Increased Pain, Swelling and Redness, Drainage, Nausea and/or Vomiting - Discharge Plan Prescriptions/Med Rec: Acetaminophen/oxyCODONE [Percocet 325-5 MG] 2 tab PO Q4H PRN #20 tablet PRN Reason: Pain Nitrofurantoin [place]/Macrocryst [Macrobid] 100 mg PO BID #10 cap Home Medications: Home Meds ALPRAZolam [Xanax] 0.25 mg PO DAILY PRN 03/22/17 [History] Escitalopram Oxalate [Lexapro] 25 mg PO DAILY 03/22/17 [History] Acetaminophen/oxyCODONE [Percocet 325-5 MG] 2 tab PO Q4H PRN #20 tablet [Rx] Docusate Sodium [Colace] 100 mg PO BID cap 03/23/17 [Rx] Nitrofurantoin [place]/Macrocryst [Macrobid] 100 mg PO BID #10 cap 03/23/17 [Rx] Patient Handouts: Urinary Tract Infection, Adult, [id number], Unilateral Salpingo-Oophorectomy, Care After, Unilateral Salpingo-Oophorectomy Referrals: Rachel Corral MD [Physician] - 03/29/17 11:30 am (Follow up with Dr. Figueroa on 03/29/17 at 1130AM) - Discharge Summary/Plan Comment DC Time >30 min.: No - Patient Data Vitals - Most Recent: Last Vital Signs Temp 36.9 C 03/22/17 22:02 Pulse 107 H 03/22/17 23:31 Resp 20 03/22/17 22:02 BP 104/61 03/23/17 04:30 Pulse Ox 99 03/22/17 23:31 Weight - Most Recent: 60.282 kg I&O - Last 24 hours: Intake & Output 03/22/17 03/23/17 03/23/17 22:59 06:59 14:59 Intake Total 675 Output Total 800 Balance -125 Lab Results - Last 24 hrs: Laboratory Results - last 24 hr 03/22/17 03/23/17 Range/Units 23:30 05:45 WBC 12.91 H 8.40 (3.98-10.04) K/mm3 RBC 3.98 3.64 L (3.98-5.22) M/mm3 Hgb 10.8 L 10.0 L (11.2-15.7) gm/L Hct 32.5 L 29.7 L (34.1-44.9) % MCV 81.7 81.6 (79.4-94.8) fl MCH 27.1 27.5 (25.6-32.2) pg MCHC 33.2 33.7 (32.2-35.5) g/dl RDW Std Deviation 42.6 42.2 (36.4-46.3) fL Plt Count 189 192 (182-369) K/mm3 MPV 10.2 10.7 (9.4-12.3) fl Neut % (Auto) 93.5 H (34.0-71.1) % Lymph % (Auto) 5.2 L (19.3-51.7) % [place] % (Auto) 1.2 L (4.7-12.5) % Eos % (Auto) 0 L (0.7-5.8) Baso % (Auto) 0.0 L (0.1-1.2) % Neut # (Auto) 12.08 H (1.56-6.13) K/mm3 Lymph # (Auto) 0.67 L (1.18-3.74) K/mm3 [place] # (Auto) 0.15 L (0.24-0.36) K/mm3 Eos # (Auto) 0.00 L (0.04-0.36) K/mm3 Baso # (Auto) 0.00 L (0.01-0.08) K/mm3 Manual Slide Review Abnormal smear Med Orders - Current: Current Medications Docusate Sodium (Colace) 100 mg PO BID [place] Last Admin: 03/23/17 00:14 Dose: 100 mg Ceftriaxone Sodium 1 gm/ (Sodium Chloride) 100 mls @ 200 mls/hr IV ONETIME ONE Stop: 03/23/17 12:29 Morphine Sulfate (Morphine) 2 mg IVPUSH Q2H PRN PRN Reason: Pain Ondansetron HCl (Zofran) 4 mg IVPUSH Q4H PRN PRN Reason: Nausea/Vomiting Oxycodone/Acetaminophen (Percocet 325-5 Mg) 2 tab PO Q4H PRN PRN Reason: Pain (moderate 4-6) Last Admin: 03/23/17 05:54 Dose: 2 tab Discontinued Medications Bupivacaine HCl (Marcaine 0.5%) Confirm Administered Dose 30 ml .ROUTE .STK-MED ONE Stop: 03/22/17 16:50 Last Admin: 03/22/17 17:32 Dose: 7 ml Dexamethasone (Dexamethasone) Confirm Administered Dose 20 mg .ROUTE .STK-MED ONE Stop: 03/22/17 18:08 Diatrizoate Meglum/Diatrizoate Sod (Gastrografin 37%) 90 ml PO ONETIME ONE Stop: 03/22/17 14:41 Last Admin: 03/22/17 15:41 Dose: 90 ml Diphenhydramine HCl (Benadryl) Confirm Administered Dose 50 mg .ROUTE .STK-MED ONE Stop: 03/22/17 19:50 Ephedrine Sulfate (Ephedrine Sulfate) Confirm Administered Dose 50 mg .ROUTE .STK-MED ONE Stop: 03/22/17 19:33 Fentanyl (Sublimaze) Confirm Administered Dose 250 mcg .ROUTE .STK-MED ONE Stop: 03/22/17 17:11 Fentanyl (Sublimaze) Confirm Administered Dose 100 mcg .ROUTE .STK-MED ONE Stop: 03/22/17 19:46 Fentanyl (Sublimaze) 50 mcg IVPUSH Q5M PRN PRN Reason: Pain Glycopyrrolate () Confirm Administered Dose 1 mg .ROUTE .STK-MED ONE Stop: 03/22/17 18:08 Haloperidol Lactate (Haldol) 1 mg IVPUSH ONETIME ONE Stop: 03/22/17 20:37 Last Admin: 03/23/17 05:04 Dose: Not Given Hydromorphone HCl (Dilaudid) 0.5 mg IVPUSH ONETIME ONE Stop: 03/22/17 14:14 Last Admin: 03/22/17 14:17 Dose: 0.5 mg Hydromorphone HCl (Dilaudid) 0.5 mg IVPUSH ONETIME ONE Stop: 03/22/17 14:20 Last Admin: 03/22/17 14:21 Dose: 0.5 mg Hydromorphone HCl (Dilaudid) Confirm Administered Dose 0.5 mg .ROUTE .STK-MED ONE Stop: 03/22/17 14:25 Last Admin: 03/22/17 14:39 Dose: Not Given Hydromorphone HCl (Dilaudid) 0.5 mg IVPUSH ONETIME ONE Stop: 03/22/17 15:58 Last Admin: 03/22/17 16:02 Dose: 0.5 mg Hydromorphone HCl (Dilaudid) Confirm Administered Dose 1 mg .ROUTE .STK-MED ONE Stop: 03/22/17 19:31 Hydromorphone HCl (Dilaudid) 0.5 mg IVPUSH Q15M PRN PRN Reason: severe pain Sodium Chloride (Normal Saline) 1,000 mls @ 125 mls/hr IV ASDIRECTED [place] Last Admin: 03/22/17 14:38 Dose: 125 mls/hr Lidocaine HCl (Xylocaine-Mpf 1%) Confirm Administered Dose 4 mls @ as directed .ROUTE .STK-MED ONE Stop: 03/22/17 18:08 Sodium Chloride (Normal Saline) Confirm Administered Dose 1,000 mls @ as directed .ROUTE .STK-MED ONE Stop: 03/22/17 19:33 Sodium Chloride (Normal Saline) Confirm Administered Dose 1,000 mls @ as directed .ROUTE .STK-MED ONE Stop: 03/22/17 19:33 Ceftriaxone Sodium 1 gm/ (Sodium Chloride) 100 mls @ 200 mls/hr IV ONETIME ONE Stop: 03/23/17 00:29 Last Admin: 03/23/17 00:13 Dose: 200 mls/hr Iopamidol (Isovue-300 (61%)) 100 ml IVPUSH ONETIME ONE Stop: 03/22/17 14:41 Last Admin: 03/22/17 15:41 Dose: 100 ml Ketamine HCl (Ketalar) Confirm Administered Dose 500 mg .ROUTE .STK-MED ONE Stop: 03/22/17 17:11 Ketorolac Tromethamine (Toradol) Confirm Administered Dose 30 mg .ROUTE .STK- MED ONE Stop: 03/22/17 19:58 Lorazepam (Ativan) 0.5 mg IVPUSH ONETIME ONE Stop: 03/22/17 16:35 Last Admin: 03/22/17 16:40 Dose: 0.5 mg Midazolam HCl (Versed 1 Mg/Ml) 2 mg IVPUSH ONETIME PRN PRN Reason: Sedation Neostigmine Methylsulfate (Neostigmine) Confirm Administered Dose 5 mg .ROUTE .STK-MED ONE Stop: 03/22/17 18:08 Ondansetron HCl (Zofran) Confirm Administered Dose 4 mg .ROUTE .STK-MED ONE Stop: 03/22/17 18:08 Ondansetron HCl (Zofran) Confirm Administered Dose 4 mg .ROUTE .STK-MED ONE Stop: 03/22/17 19:46 Phenylephrine HCl (Alexey-Synephrine) Confirm Administered Dose 10 mg .ROUTE .STK- MED ONE Stop: 03/22/17 19:33 Propofol (Diprivan 20 Ml) Confirm Administered Dose 200 mg .ROUTE .STK-MED ONE Stop: 03/22/17 17:11 Propofol (Diprivan 20 Ml) Confirm Administered Dose 200 mg .ROUTE .STK-MED ONE Stop: 03/22/17 19:19 Rocuronium [place] (Zemuron) Confirm Administered Dose 50 mg .ROUTE .STK-MED ONE Stop: 03/22/17 18:07 Sodium Chloride (Saline Flush) 10 ml FLUSH ASDIRECTED PRN PRN Reason: Keep Vein Open Last Admin: 03/22/17 14:40 Dose: 10 ml Sodium Chloride (Saline Flush) 10 ml FLUSH ONETIME PRN PRN Reason: IV FLUSH Last Admin: 03/22/17 15:41 Dose: 10 ml *Q Meaningful Use (DIS) - VTE *Q VTE Criteria *Q: - Stroke *Q Stroke Criteria *Q: - AMI *Q AMI Criteria *Q:
--- NOTE | 2017-03-23 08:05 | PCM.SURGPN ---
- General Info Date of Service: 03/23/17 POD#: 1 Functional Status: Reports: Pain Controlled, Ambulating, Urinating - Review of Systems General: Reports: No Symptoms Pulmonary: Reports: No Symptoms Cardiovascular: Reports: No Symptoms Gastrointestinal: Reports: Abdominal Pain (Controlled with medications ) Genitourinary: Reports: No Symptoms Musculoskeletal: Reports: No Symptoms - Patient Data Vitals - Most Recent: Last Vital Signs Temp 36.9 C 03/22/17 22:02 Pulse 107 H 03/22/17 23:31 Resp 20 03/22/17 22:02 BP 104/61 03/23/17 04:30 Pulse Ox 99 03/22/17 23:31 Weight - Most Recent: 60.282 kg I&O - Last 24 Hours: Intake & Output 03/22/17 03/23/17 03/23/17 22:59 06:59 14:59 Intake Total 675 Output Total 800 Balance -125 Lab Results Last 24 Hrs: Laboratory Results - last 24 hr 03/22/17 03/23/17 Range/Units 23:30 05:45 WBC 12.91 H 8.40 (3.98-10.04) K/mm3 RBC 3.98 3.64 L (3.98-5.22) M/mm3 Hgb 10.8 L 10.0 L (11.2-15.7) gm/L Hct 32.5 L 29.7 L (34.1-44.9) % MCV 81.7 81.6 (79.4-94.8) fl MCH 27.1 27.5 (25.6-32.2) pg MCHC 33.2 33.7 (32.2-35.5) g/dl RDW Std Deviation 42.6 42.2 (36.4-46.3) fL Plt Count 189 192 (182-369) K/mm3 MPV 10.2 10.7 (9.4-12.3) fl Neut % (Auto) 93.5 H (34.0-71.1) % Lymph % (Auto) 5.2 L (19.3-51.7) % [place] % (Auto) 1.2 L (4.7-12.5) % Eos % (Auto) 0 L (0.7-5.8) Baso % (Auto) 0.0 L (0.1-1.2) % Neut # (Auto) 12.08 H (1.56-6.13) K/mm3 Lymph # (Auto) 0.67 L (1.18-3.74) K/mm3 [place] # (Auto) 0.15 L (0.24-0.36) K/mm3 Eos # (Auto) 0.00 L (0.04-0.36) K/mm3 Baso # (Auto) 0.00 L (0.01-0.08) K/mm3 Manual Slide Review Abnormal smear Med Orders - Current: Current Medications Docusate Sodium (Colace) 100 mg PO BID [place] Last Admin: 03/23/17 00:14 Dose: 100 mg Ceftriaxone Sodium 1 gm/ (Sodium Chloride) 100 mls @ 200 mls/hr IV ONETIME ONE Stop: 03/23/17 12:29 Morphine Sulfate (Morphine) 2 mg IVPUSH Q2H PRN PRN Reason: Pain Ondansetron HCl (Zofran) 4 mg IVPUSH Q4H PRN PRN Reason: Nausea/Vomiting Oxycodone/Acetaminophen (Percocet 325-5 Mg) 2 tab PO Q4H PRN PRN Reason: Pain (moderate 4-6) Last Admin: 03/23/17 05:54 Dose: 2 tab Discontinued Medications Bupivacaine HCl (Marcaine 0.5%) Confirm Administered Dose 30 ml .ROUTE .STK-MED ONE Stop: 03/22/17 16:50 Last Admin: 03/22/17 17:32 Dose: 7 ml Dexamethasone (Dexamethasone) Confirm Administered Dose 20 mg .ROUTE .STK-MED ONE Stop: 03/22/17 18:08 Diatrizoate Meglum/Diatrizoate Sod (Gastrografin 37%) 90 ml PO ONETIME ONE Stop: 03/22/17 14:41 Last Admin: 03/22/17 15:41 Dose: 90 ml Diphenhydramine HCl (Benadryl) Confirm Administered Dose 50 mg .ROUTE .STK-MED ONE Stop: 03/22/17 19:50 Ephedrine Sulfate (Ephedrine Sulfate) Confirm Administered Dose 50 mg .ROUTE .STK-MED ONE Stop: 03/22/17 19:33 Fentanyl (Sublimaze) Confirm Administered Dose 250 mcg .ROUTE .STK-MED ONE Stop: 03/22/17 17:11 Fentanyl (Sublimaze) Confirm Administered Dose 100 mcg .ROUTE .STK-MED ONE Stop: 03/22/17 19:46 Fentanyl (Sublimaze) 50 mcg IVPUSH Q5M PRN PRN Reason: Pain Glycopyrrolate () Confirm Administered Dose 1 mg .ROUTE .STK-MED ONE Stop: 03/22/17 18:08 Haloperidol Lactate (Haldol) 1 mg IVPUSH ONETIME ONE Stop: 03/22/17 20:37 Last Admin: 03/23/17 05:04 Dose: Not Given Hydromorphone HCl (Dilaudid) 0.5 mg IVPUSH ONETIME ONE Stop: 03/22/17 14:14 Last Admin: 03/22/17 14:17 Dose: 0.5 mg Hydromorphone HCl (Dilaudid) 0.5 mg IVPUSH ONETIME ONE Stop: 03/22/17 14:20 Last Admin: 03/22/17 14:21 Dose: 0.5 mg Hydromorphone HCl (Dilaudid) Confirm Administered Dose 0.5 mg .ROUTE .STK-MED ONE Stop: 03/22/17 14:25 Last Admin: 03/22/17 14:39 Dose: Not Given Hydromorphone HCl (Dilaudid) 0.5 mg IVPUSH ONETIME ONE Stop: 03/22/17 15:58 Last Admin: 03/22/17 16:02 Dose: 0.5 mg Hydromorphone HCl (Dilaudid) Confirm Administered Dose 1 mg .ROUTE .STK-MED ONE Stop: 03/22/17 19:31 Hydromorphone HCl (Dilaudid) 0.5 mg IVPUSH Q15M PRN PRN Reason: severe pain Sodium Chloride (Normal Saline) 1,000 mls @ 125 mls/hr IV ASDIRECTED [place] Last Admin: 03/22/17 14:38 Dose: 125 mls/hr Lidocaine HCl (Xylocaine-Mpf 1%) Confirm Administered Dose 4 mls @ as directed .ROUTE .STK-MED ONE Stop: 03/22/17 18:08 Sodium Chloride (Normal Saline) Confirm Administered Dose 1,000 mls @ as directed .ROUTE .STK-MED ONE Stop: 03/22/17 19:33 Sodium Chloride (Normal Saline) Confirm Administered Dose 1,000 mls @ as directed .ROUTE .STK-MED ONE Stop: 03/22/17 19:33 Ceftriaxone Sodium 1 gm/ (Sodium Chloride) 100 mls @ 200 mls/hr IV ONETIME ONE Stop: 03/23/17 00:29 Last Admin: 03/23/17 00:13 Dose: 200 mls/hr Iopamidol (Isovue-300 (61%)) 100 ml IVPUSH ONETIME ONE Stop: 03/22/17 14:41 Last Admin: 03/22/17 15:41 Dose: 100 ml Ketamine HCl (Ketalar) Confirm Administered Dose 500 mg .ROUTE .STK-MED ONE Stop: 03/22/17 17:11 Ketorolac Tromethamine (Toradol) Confirm Administered Dose 30 mg .ROUTE .STK- MED ONE Stop: 03/22/17 19:58 Lorazepam (Ativan) 0.5 mg IVPUSH ONETIME ONE Stop: 03/22/17 16:35 Last Admin: 03/22/17 16:40 Dose: 0.5 mg Midazolam HCl (Versed 1 Mg/Ml) 2 mg IVPUSH ONETIME PRN PRN Reason: Sedation Neostigmine Methylsulfate (Neostigmine) Confirm Administered Dose 5 mg .ROUTE .STK-MED ONE Stop: 03/22/17 18:08 Ondansetron HCl (Zofran) Confirm Administered Dose 4 mg .ROUTE .STK-MED ONE Stop: 03/22/17 18:08 Ondansetron HCl (Zofran) Confirm Administered Dose 4 mg .ROUTE .STK-MED ONE Stop: 03/22/17 19:46 Phenylephrine HCl (Alexey-Synephrine) Confirm Administered Dose 10 mg .ROUTE .STK- MED ONE Stop: 03/22/17 19:33 Propofol (Diprivan 20 Ml) Confirm Administered Dose 200 mg .ROUTE .STK-MED ONE Stop: 03/22/17 17:11 Propofol (Diprivan 20 Ml) Confirm Administered Dose 200 mg .ROUTE .STK-MED ONE Stop: 03/22/17 19:19 Rocuronium [place] (Zemuron) Confirm Administered Dose 50 mg .ROUTE .STK-MED ONE Stop: 03/22/17 18:07 Sodium Chloride (Saline Flush) 10 ml FLUSH ASDIRECTED PRN PRN Reason: Keep Vein Open Last Admin: 03/22/17 14:40 Dose: 10 ml Sodium Chloride (Saline Flush) 10 ml FLUSH ONETIME PRN PRN Reason: IV FLUSH Last Admin: 03/22/17 15:41 Dose: 10 ml - Exam Wound/Incisions: Healing Well, No Drainage General: Alert, Oriented, Cooperative Lungs: Clear to Auscultation, Normal Respiratory Effort Cardiovascular: Regular Rate (Not tachycardic during assessment this AM. HR in upper 90's.), Regular Rhythm GI/Abdominal Exam: Normal Bowel Sounds, Soft, No Distention, Tender ( appropriate post op) Skin: Warm, Dry, Intact - Problem List & Annotations (1) Pelvic mass SNOMED Code(s): 30543397 Code(s): R19.00 - INTRA-ABD AND PELVIC SWELLING, MASS AND LUMP, UNSP SITE Status: Acute Current Visit: Yes (2) Abdominal pain SNOMED Code(s): 78429598 Code(s): R10.9 - UNSPECIFIED ABDOMINAL PAIN Status: Acute Current Visit: Yes Qualifiers: Abdominal location: lower abdomen, unspecified Qualified Code(s): R10.30 - Lower abdominal pain, unspecified (3) Ovarian bleed, left SNOMED Code(s): 48918340 Code(s): N83.8 - OTH NONINFLAMMATORY DISORD OF OVARY, FALLOP AND BROAD LIGMT Status: Acute Current Visit: Yes (4) Ovarian mass, right SNOMED Code(s): 099165301 Code(s): N83.9 - NONINFLAMMATORY DISORD OF OVARY, FALLOP & BROAD LIGMT, UNSP Status: Acute Current Visit: Yes (5) Hemoperitoneum SNOMED Code(s): 501705726 Code(s): K66.1 - HEMOPERITONEUM Status: Acute Current Visit: Yes (6) Blood transfusion during current hospitalization SNOMED Code(s): 475787159 Code(s): KKI0188 - Status: Acute Current Visit: Yes - Problem List Review Problem List Initiated/Reviewed/Updated: Yes - My Orders Last 24 Hours: Active Orders 24 hr Category Date Time Status Patient Status [ADT] Routine ADT 03/22/17 23:00 Active Antiembolic Devices [RC] BID Care 03/22/17 21:43 Active Cardiac Monitoring [RC] DAILY Care 03/22/17 23:23 Active Intake and Output [RC] Q4HR Care 03/22/17 21:43 Active Notify Provider [RC] ASDIRECTED Care 03/22/17 20:36 Active Oxygen Therapy [RC] .PRN Care 03/22/17 20:36 Active Ready for Discharge [RC] PER UNIT ROUTINE Care 03/23/17 13:30 Ordered Up ad Marisol [RC] PER UNIT ROUTINE Care 03/22/17 21:43 Active Vital Signs [RC] 00,04,08,12,16,20 Care 03/22/17 21:43 Active CULTURE URINE [] Routine Lab 03/22/17 15:53 Results Acetaminophen/oxyCODONE [Percocet 325-5 MG] Med 03/22/17 21:43 Active 2 tab PO Q4H PRN Docusate Sodium [Colace] Med 03/22/17 21:43 Active 100 mg PO BID Morphine Med 03/22/17 21:43 Active 2 mg IVPUSH Q2H PRN Ondansetron [Zofran] Med 03/22/17 21:43 Active 4 mg IVPUSH Q4H PRN cefTRIAXone [Rocephin] 1 gm Med 03/23/17 12:00 Ordered Sodium Chloride 0.9% [Normal Saline] 100 ml IV ONETIME Pulse Oximetry Continuous Monitoring [OM.PC] Routine Oth 03/22/17 23:22 Active Sequential Compression Device [OM.PC] Per Unit Routine Oth 03/22/17 21:43 Ordered Resuscitation Status Routine Resus Stat 03/22/17 20:13 Ordered Medication Orders Docusate Sodium (Colace) 100 mg PO BID [facility] Last Admin: 03/23/17 00:14 Dose: 100 mg Ceftriaxone Sodium 1 gm/ (Sodium Chloride) 100 mls @ 200 mls/hr IV ONETIME ONE Stop: 03/23/17 12:29 Morphine Sulfate (Morphine) 2 mg IVPUSH Q2H PRN PRN Reason: Pain Ondansetron HCl (Zofran) 4 mg IVPUSH Q4H PRN PRN Reason: Nausea/Vomiting Oxycodone/Acetaminophen (Percocet 325-5 Mg) 2 tab PO Q4H PRN PRN Reason: Pain (moderate 4-6) Last Admin: 03/23/17 05:54 Dose: 2 tab Admin: 03/23/17 01:43 Dose: 2 tab Admin: 03/22/17 22:04 Dose: 2 tab - Assessment Assessment (Free Text/Narrative):: 26 y/o POD#1 from diagnostic laparoscopy, evacuation of hemoperitoneum, cauterization/control of bleeding/ruptured left hemorrhagic ovarian cyst, and removal of right ovarian mass. - Plan Plan (Free Text/Narrative):: * S/p transfusion of 1 unit PRBC in OR. Hb early post op was 10.8, now 10.0 this AM. This seems appropriate given timing of draws, etc. No concern for on- going bleeding. Tachycardia mostly resolved. * Likely UTI. Culture pending. S/p 1 dose of IV ceftriaxone last night. 2nd to be given 12 hours after 1st. Patient to be discharged home on course of Macrobid * Routine cares * Discharge home today after next IV antibiotic assuming she continues to do well * Follow up in 7 days for post op check / pathology review
[2017-03-23 09:14] VITALS: BP 103/50
[2017-03-23] MEDS ORDERED: cefTRIAXone 1 GM in Sodium Chloride 0.9% 100 ML IV ONE ×3 (12:00)
== END 2017-03-23 13:08 | disposition home or self-care (01) | DRG 356 ==
LOC: JD.ED 13:48 → JD.SDS 16:41 → JD.MS 20:12
PROVIDERS: ADMIT Obstetrics & Gynecology; ATTEND Obstetrics & Gynecology
PROC: 0UT04ZZ Resection of Right Ovary, Percutaneous Endoscopic Approach (ICD-10-PCS; principal; 2017-03-22)
PROC: 0W3J4ZZ Control Bleeding in Pelvic Cavity, Percutaneous Endoscopic Approach (ICD-10-PCS; 2017-03-22)
PROC: 0W9J4ZZ Drainage of Pelvic Cavity, Percutaneous Endoscopic Approach (ICD-10-PCS; 2017-03-22)
PROC: 30233N1 Transfusion of Nonautologous Red Blood Cells into Peripheral Vein, Percutaneous Approach (ICD-10-PCS; 2017-03-22)
DX: R19.00 Intra-abdominal and pelvic swelling, mass and lump, unspecified site (principal); K66.1 Hemoperitoneum; N39.0 Urinary tract infection, site not specified; R00.0 Tachycardia, unspecified; D64.9 Anemia, unspecified; N83.202 Unspecified ovarian cyst, left side; R55 Syncope and collapse; I95.9 Hypotension, unspecified; F32.9 Major depressive disorder, single episode, unspecified; Z79.899 Other long term (current) drug therapy
CPT/HCPCS: 00840; 36415; 36430; 74177; 74177-26; 76817; 76817-26; 80053; 81001; 83690; 84702; 84703; 85018; 85025; 85027; 86850; 86900; 86901; 86922; 87086; 87088; 87186; 94762; 96361; 96374; 96375; 96376; 99285; 99285-25; A9270-GY; J0696; J1100; J1170; J1200; J1885; J2060; J2370; J2405; J2704; J2710; J3010; J7030; J7040; J7050; P9016; Q9963; Q9967

== ENCOUNTER 2018-09-10 01:39 | Emergency (ER) | payer SELFPAY ==
[2018-09-10 01:45] VITALS: BP 118/71
[2018-09-10] MEDS ORDERED: Ondansetron 4 MG/2 ML SDV IVPUSH ONE (01:54)
[2018-09-10] MEDS ORDERED: Sodium Chloride 0.9% 10 ML Syringe FLUSH PRN (01:54)
[2018-09-10] MEDS ORDERED: Sodium Chloride 0.9% 1,000 ML IV SCH (02:00)
--- NOTE | 2018-09-10 02:44 | EDM.PDOCBH ---
ED HPI GENERAL MEDICAL PROBLEM - General Chief Complaint: Behavioral/Psych Stated Complaint: [facility] Time Seen by Provider: 09/10/18 01:49 Source of Information: Reports: Patient, EMS History Limitations: Reports: Intoxication - History of Present Illness INITIAL COMMENTS - FREE TEXT/NARRATIVE: The patient presents by [facility] for nausea, vomiting, chest pain and shortness of breath. The patient does say that she was drinking tonight. She had vodka and whiskey. She drank more then she usually does. She got home and developed some anxiety with chest pain and shortness of breath. She says this has happened before and she was on medication but she was doing better so she was able to stop it. She has no fever, chills, cough, congestion or runny nose. She did vomit in the room before I came in. She has no abdominal pain. She has no dysuria or hematuria. She does not think she is . She denies taking any illegal drugs. Onset: Gradual Duration: Hour(s): Location: Reports: Chest Quality: Reports: Sharp Severity: Mild Improves with: Reports: None Worsens with: Reports: None Associated Symptoms: Reports: Chest Pain, Shortness of Breath. Denies: Cough, Fever/Chills, Headaches, Nausea/Vomiting - Related Data Allergies Allergy/AdvReac Type Severity Reaction Status Date / Time No Known Allergies Allergy Verified 09/10/18 01:44 Home Meds: Home Meds . 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 History: D and C Psychiatric History: Reports: Depression - Infectious Disease History Infectious Disease History: Reports: Chicken Pox - Past Surgical History Female Surgical History: Reports: D&C Social & Family History - Family History Family Medical History: Noncontributory - Tobacco Use Smoking Status *Q: Unknown Ever Smoked - Caffeine Use Caffeine Use: Reports: None Other Caffeine Use: occassionally ED ROS GENERAL - Review of Systems Review Of Systems: See Below Constitutional: Reports: No Symptoms HEENT: Reports: No Symptoms Respiratory: Reports: Shortness of Breath Cardiovascular: Reports: Chest Pain Endocrine: Reports: No Symptoms GI/Abdominal: Reports: No Symptoms : Reports: No Symptoms Musculoskeletal: Reports: No Symptoms Skin: Reports: No Symptoms Psychiatric: Reports: Anxiety ED EXAM, BEHAVIORAL HEALTH - Physical Exam Exam: See Below Exam Limited By: Intoxication General Appearance: Alert, No Apparent Distress Ears: Normal External Exam Nose: Normal Inspection Head: Atraumatic, Normocephalic Neck: Normal Inspection Respiratory/Chest: No Respiratory Distress, Lungs Clear, Normal Breath Sounds Cardiovascular: Regular Rate, Rhythm, No Edema, No Murmur GI/Abdominal: Soft, Non-Tender, No Organomegaly, No Mass Back Exam: Normal Inspection Extremities: Normal Inspection Neurological: Alert, No Motor/Sensory Deficits, Oriented x 3 COURSE, BEHAVIORAL HEALTH COMP - Course Vital Signs: Last Vital Signs Temp 97.6 F 09/10/18 01:42 Pulse 113 H 09/10/18 01:42 Resp 18 09/10/18 01:42 BP 118/71 09/10/18 01:42 Pulse Ox 100 09/10/18 01:42 Orders, Labs, Meds: Active Orders 24 hr Category Date Time Status Cardiac Monitoring [RC] . DIRECTED Care 09/10/18 01:54 Active Peripheral IV Care [RC] . DIRECTED Care 09/10/18 01:54 Active Sodium Chloride 0.9% [Normal Saline] 1,000 ml Med 09/10/18 02:00 Active IV .BOLUS Sodium Chloride 0.9% [Saline Flush] Med 09/10/18 01:54 Active 10 ml FLUSH ASDIRECTED PRN ED Antiemetic Medication Reflex [OM.PC] Stat Oth 09/10/18 01:54 Ordered Peripheral IV Insertion Adult [OM.PC] Stat Oth 09/10/18 01:54 Ordered Medication Orders Sodium Chloride (Normal Saline) 1,000 mls @ 1,000 mls/hr IV .BOLUS [facility] Last Admin: 09/10/18 02:03 Dose: 1,000 mls/hr Sodium Chloride (Saline Flush) 10 ml FLUSH ASDIRECTED PRN PRN Reason: Keep Vein Open Last Admin: 09/10/18 02:04 Dose: 10 ml Laboratory Tests 09/10/18 09/10/18 09/10/18 Range/Units 02:00 02:00 02:00 WBC 7.96 (3.98-10.04) K/mm3 RBC 5.16 (3.98-5.22) M/mm3 Hgb 13.5 (11.2-15.7) gm/L Hct 41.2 (34.1-44.9) % MCV 79.8 (79.4-94.8) fl MCH 26.2 (25.6-32.2) pg MCHC 32.8 (32.2-35.5) g/dl RDW Std Deviation 41.9 (36.4-46.3) fL Plt Count 278 (182-369) K/mm3 MPV 10.2 (9.4-12.3) fl Neut % (Auto) 71.0 (34.0-71.1) % Lymph % (Auto) 23.0 (19.3-51.7) % [place] % (Auto) 5.4 (4.7-12.5) % Eos % (Auto) 0.4 L (0.7-5.8) Baso % (Auto) 0.1 (0.1-1.2) % Neut # (Auto) 5.65 (1.56-6.13) K/mm3 Lymph # (Auto) 1.83 (1.18-3.74) K/mm3 [place] # (Auto) 0.43 H (0.24-0.36) K/mm3 Eos # (Auto) 0.03 L (0.04-0.36) K/mm3 Baso # (Auto) 0.01 (0.01-0.08) K/mm3 Sodium 142 (136-145) mEq/L Potassium 3.5 (3.5-5.1) mEq/L Chloride 105 (98-107) mEq/L Carbon Dioxide 22 (21-32) mEq/L Anion Gap 18.5 H (5-15) BUN 8 (7-18) mg/dL Creatinine 0.7 (0.55-1.02) mg/dL Est Cr Clr Drug Dosing 111.01 mL/min Estimated GFR (MDRD) > 60 (>60) mL/min BUN/Creatinine Ratio 11.4 L (14-18) Glucose 116 H (74-106) mg/dL Calcium 9.4 (8.5-10.1) mg/dL Total Bilirubin 0.2 (0.2-1.0) mg/dL AST 18 (15-37) U/L ALT 22 (14-59) U/L Alkaline Phosphatase 78 (46-116) U/L Total Protein 8.7 H (6.4-8.2) g/dl Albumin 4.1 (3.4-5.0) g/dl Globulin 4.6 gm/dL Albumin/Globulin Ratio 0.9 L (1-2) Lipase 214 (73-393) U/L HCG, Qual Negative (NEGATIVE) Ethyl Alcohol 0.05 (0.00) gm% Medications Generic Name Dose Route Start Last Admin Trade Name Freq PRN Reason Stop Dose Admin Sodium Chloride 1,000 mls @ 1,000 mls/hr 09/10/18 02:00 09/10/18 02:03 Normal Saline IV 1,000 mls/hr .BOLUS [facility] Administration Sodium Chloride 10 ml 09/10/18 01:54 09/10/18 02:04 Saline Flush FLUSH 10 ml ASDIRECTED PRN Administration Keep Vein Open Discontinued Medications Generic Name Dose Route Start Last Admin Trade Name Freq PRN Reason Stop Dose Admin Ondansetron HCl 4 mg 09/10/18 01:54 09/10/18 02:04 Zofran IVPUSH 09/10/18 01:55 4 mg ONETIME ONE Administration Re-Assessment/Re-Exam: I ordered an IV NS 1L bolus, zofran 4mg IV, and labs. Her CBC looks good. Her anion gap was elevated at 18.5. Her lipase was normal. Her HCG is negative. Her ETOH is 0.05. She feels much better. I will discharge her home. She does not have a ride so she will hang out here until morning. Departure - Departure Time of Disposition: 06:20 Disposition: Home, Self-Care 01 Condition: Good Clinical Impression: Anxiety attack Alcohol intoxication Qualifiers: Complication of substance-induced condition: uncomplicated Qualified Code(s): F10.920 - Alcohol use, unspecified with intoxication, uncomplicated Nausea and vomiting Qualifiers: Vomiting type: unspecified Vomiting Intractability: non-intractable Qualified Code(s): R11.2 - Nausea with vomiting, unspecified - Discharge Information *PRESCRIPTION DRUG MONITORING PROGRAM REVIEWED*: No *COPY OF PRESCRIPTION DRUG MONITORING REPORT IN PATIENT CRUZ: No Referrals: PCP,None [Primary Care Provider] - Bonny Kinney PA-C [Physician Clinical Research Tech] - 1 Week Forms: ED Department Discharge Additional Instructions: Go home and rest. Drink plenty of water. Please return if you are worse. Follow up with your provider or Bonny Kinney. If you are having more anxiety, you may need to go back on some medication. - My Orders Last 24 Hours: My Active Orders 09/10/18 01:54 Cardiac Monitoring [RC] . DIRECTED Peripheral IV Care [RC] . DIRECTED Sodium Chloride 0.9% [Saline Flush] 10 ml FLUSH ASDIRECTED PRN ED Antiemetic Medication Reflex [OM.PC] Stat Peripheral IV Insertion Adult [OM.PC] Stat 09/10/18 02:00 Sodium Chloride 0.9% [Normal Saline] 1,000 ml IV .BOLUS - Assessment/Plan Last 24 Hours: My Active Orders 09/10/18 01:54 Cardiac Monitoring [RC] . DIRECTED Peripheral IV Care [RC] . DIRECTED Sodium Chloride 0.9% [Saline Flush] 10 ml FLUSH ASDIRECTED PRN ED Antiemetic Medication Reflex [OM.PC] Stat Peripheral IV Insertion Adult [OM.PC] Stat 09/10/18 02:00 Sodium Chloride 0.9% [Normal Saline] 1,000 ml IV .BOLUS
== END 2018-09-10 06:48 | disposition home or self-care (01) ==
LOC: JD.ED 01:39
DX: F10.920 Alcohol use, unspecified with intoxication, uncomplicated (principal); F41.9 Anxiety disorder, unspecified; R11.2 Nausea with vomiting, unspecified; Y90.2 Blood alcohol level of 40-59 mg/100 ml
CPT/HCPCS: 36415; 80053; 83690; 84703; 85025; 96361; 96374; 99283; G0480; J2405; J7040; 99284

== ENCOUNTER 2019-09-30 19:47 | Emergency (ER) | payer MEDICAID, OTHER ==
[2019-09-30 19:59] VITALS: BP 137/89; PULSE 108
[2019-09-30] MEDS ORDERED: Ondansetron 4 MG/2 ML SDV IVPUSH ONE (20:17)
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
[2019-09-30] MEDS ORDERED: Lactated Ringers 1,000 ML IV SCH (20:30)
== END 2019-10-01 06:46 | disposition home or self-care (01) ==
LOC: JD.ED 19:47
DX: F19.10 Other psychoactive substance abuse, uncomplicated (principal)
CPT/HCPCS: 36415; 80053; 80306; 80307; 81025; 83735; 85007; 85027; 93005; 96374; 99284; J2405; J7120; 93010; 99283

== ENCOUNTER 2019-10-21 16:02 | Emergency (ER) | payer MEDICAID ==
--- NOTE | 2019-10-21 17:38 | EDM.PDOC ---
ED HPI GENERAL MEDICAL PROBLEM - General Chief Complaint: Back Pain or Injury Stated Complaint: BACK PAIN Time Seen by Provider: 10/21/19 16:45 Source of Information: Reports: Patient, RN Notes Reviewed History Limitations: Reports: No Limitations - History of Present Illness INITIAL COMMENTS - FREE TEXT/NARRATIVE: Patient is a 29-year-old female who presents to the ED for the evaluation of her lower back and lower abdomen pain. The patient states that this is been present for roughly 3 to 4 days now. She does not characterize any trauma to the area. She states that the pain is sharp, and is quite constant, but sometimes it feels less sharp than others. She states that the pain is worse when she is standing or walking, and is relieved by laying flat. She took 800 mg ibuprofen this morning it seemed to dull the pain a little bit. She notes that her last menstrual period was October 09. She states that she has had some fevers and chills at home, but denies any shortness of breath cough or other sick symptoms she has not had vomiting/diarrhea, but is having some mild nausea. Patient denies any urinary complaints such as dysuria, frequency or urgency, or vaginal discharge, and she states she is not worried about the possibility of sexually transmitted disease today. She states that is been a few days since she has had her last bowel movement as well. 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 CUSTOMS AND BORDER PROTECTION INSPECTOR History: D and C Psychiatric History: Reports: Addiction - Infectious Disease History Infectious Disease History: Reports: Chicken Pox - Past Surgical History HEENT Surgical History: Reports: Tonsillectomy Female Surgical History: Reports: D&C, Oophorectomy Social & Family History - Family History Family Medical History: Noncontributory - Tobacco Use Smoking Status *Q: Never Smoker - Caffeine Use Caffeine Use: Reports: Soda Other Caffeine Use: occassionally - Recreational Drug Use Recreational Drug Type: Reports: Marijuana/Hashish Other Recreational Drug Type: 3 weeks ago; otherwise uses 3 times per week - Living Situation & Occupation Living situation: Reports: (), with Family (Parents) Occupation: Unemployed ED ROS GENERAL - Review of Systems Review Of Systems: See Below Constitutional: Reports: Fever, Chills Respiratory: Denies: Shortness of Breath, Cough Cardiovascular: Denies: Chest Pain GI/Abdominal: Reports: Abdominal Pain (lower abdomen pain), Nausea. Denies: Diarrhea, Vomiting : Reports: Flank Pain (left). Denies: Dysuria, Frequency, Urgency ED EXAM,LOWER BACK PAIN/INJURY - Physical Exam Exam: See Below Exam Limited By: No Limitations General Appearance: Alert, WD/WN, No Apparent Distress Throat/Mouth: Normal Inspection, Normal Lips, Normal Teeth, Normal Gums, Normal Oropharynx, Normal Voice, No Airway Compromise Head: Atraumatic, Normocephalic Respiratory/Chest: No Respiratory Distress, Lungs Clear, Normal Breath Sounds, No Accessory Muscle Use, Chest Non-Tender Cardiovascular: Normal Peripheral Pulses, Regular Rate, Rhythm, No Murmur GI/Abdominal: Normal Bowel Sounds, Soft, No Distention, No Mass, Tender (lower abdomen, worse with direct palpatiion of abdomen) Back Exam: Normal Inspection, Full Range of Motion, CVA Tenderness (L) Neurological: Alert, Normal Mood/Affect, No Motor/Sensory Deficits, Oriented x 3 Psychiatric: Normal Affect, Normal Mood Skin Exam: Warm, Dry, Intact, Normal Color, No Rash Course - Vital Signs Last Recorded V/S: Last Vital Signs Temp 99.1 F 10/21/19 17:57 Pulse 103 H 10/21/19 18:52 Resp 18 10/21/19 18:52 BP 116/66 10/21/19 18:52 Pulse Ox 99 10/21/19 18:52 - Orders/Labs/Meds Orders: Active Orders 24 hr Category Date Time Status CULTURE URINE [RM] Routine Lab 10/21/19 19:03 Ordered Labs: Laboratory Tests 10/21/19 10/21/19 10/21/19 Range/Units 17:52 17:52 17:58 WBC 10.31 H (3.98-10.04) K/mm3 RBC 4.67 (3.98-5.22) M/mm3 Hgb 12.7 (11.2-15.7) gm/dl Hct 39.9 (34.1-44.9) % MCV 85.4 (79.4-94.8) fl MCH 27.2 (25.6-32.2) pg MCHC 31.8 L (32.2-35.5) g/dl RDW Std Deviation 41.6 (36.4-46.3) fL Plt Count 256 (182-369) K/mm3 MPV 10.2 (9.4-12.3) fl Neutrophils % (Manual) 83 H (40-60) % Band Neutrophils % 1 (0-10) % Lymphocytes % (Manual) 8 L (20-40) % Atypical Lymphs % 1 % Monocytes % (Manual) 7 (2-10) % Eosinophils % (Manual) 0 L (0.7-5.8) % Basophils % (Manual) 0 L (0.1-1.2) Platelet Estimate Adequate RBC Morph Comment Normal Sodium 137 (136-145) mEq/L Potassium 4.2 (3.5-5.1) mEq/L Chloride 100 (98-107) mEq/L Carbon Dioxide 28 (21-32) mEq/L Anion Gap 13.2 (5-15) BUN 9 (7-18) mg/dL Creatinine 0.8 (0.55-1.02) mg/dL Est Cr Clr Drug Dosing 85.06 mL/min Estimated GFR (MDRD) > 60 (>60) mL/min BUN/Creatinine Ratio 11.3 L (14-18) Glucose 95 (74-106) mg/dL Calcium 8.8 (8.5-10.1) mg/dL Total Bilirubin 0.3 (0.2-1.0) mg/dL AST 14 L (15-37) U/L ALT 20 (14-59) U/L Alkaline Phosphatase 65 (46-116) U/L Total Protein 8.0 (6.4-8.2) g/dl Albumin 3.1 L (3.4-5.0) g/dl Globulin 4.9 gm/dL Albumin/Globulin Ratio 0.6 L (1-2) Urine Color Yellow (Yellow) Urine Appearance Slt cloudy H (Clear) Urine pH 6.0 (5.0-8.0) Ur Specific [place] 1.025 (1.005-1.030) Urine Protein Negative (Negative) Urine Glucose (UA) Negative (Negative) Urine Ketones Negative (Negative) Urine Occult Blood 3+ H (Negative) Urine Nitrite Positive H (Negative) Urine Bilirubin Negative (Negative) Urine Urobilinogen 0.2 (0.2-1.0) Ur Leukocyte Esterase 2+ H (Negative) Urine RBC 20-30 H (0-5) /hpf Urine WBC 40-50 H (0-5) /hpf Ur Squamous Epith Cells 10-20 H (0-5) /hpf Urine Bacteria Many H (FEW) /hpf Urine Mucus Few (FEW) /hpf Urine HCG, Qual (NEGATIVE) 10/21/19 Range/Units 17:58 WBC (3.98-10.04) K/mm3 RBC (3.98-5.22) M/mm3 Hgb (11.2-15.7) gm/dl Hct (34.1-44.9) % MCV (79.4-94.8) fl MCH (25.6-32.2) pg MCHC (32.2-35.5) g/dl RDW Std Deviation (36.4-46.3) fL Plt Count (182-369) K/mm3 MPV (9.4-12.3) fl Neutrophils % (Manual) (40-60) % Band Neutrophils % (0-10) % Lymphocytes % (Manual) (20-40) % Atypical Lymphs % % Monocytes % (Manual) (2-10) % Eosinophils % (Manual) (0.7-5.8) % Basophils % (Manual) (0.1-1.2) Platelet Estimate RBC Morph Comment Sodium (136-145) mEq/L Potassium (3.5-5.1) mEq/L Chloride (98-107) mEq/L Carbon Dioxide (21-32) mEq/L Anion Gap (5-15) BUN (7-18) mg/dL Creatinine (0.55-1.02) mg/dL Est Cr Clr Drug Dosing mL/min Estimated GFR (MDRD) (>60) mL/min BUN/Creatinine Ratio (14-18) Glucose (74-106) mg/dL Calcium (8.5-10.1) mg/dL Total Bilirubin (0.2-1.0) mg/dL AST (15-37) U/L ALT (14-59) U/L Alkaline Phosphatase (46-116) U/L Total Protein (6.4-8.2) g/dl Albumin (3.4-5.0) g/dl Globulin gm/dL Albumin/Globulin Ratio (1-2) Urine Color (Yellow) Urine Appearance (Clear) Urine pH (5.0-8.0) Ur Specific [place] (1.005-1.030) Urine Protein (Negative) Urine Glucose (UA) (Negative) Urine Ketones (Negative) Urine Occult Blood (Negative) Urine Nitrite (Negative) Urine Bilirubin (Negative) Urine Urobilinogen (0.2-1.0) Ur Leukocyte Esterase (Negative) Urine RBC (0-5) /hpf Urine WBC (0-5) /hpf Ur Squamous Epith Cells (0-5) /hpf Urine Bacteria (FEW) /hpf Urine Mucus (FEW) /hpf Urine HCG, Qual Negative (NEGATIVE) - Re-Assessments/Exams Free Text/Narrative Re-Assessment/Exam: 10/21/19 17:39 Patient presents to the ED for the evaluation of her lower back/abdomen pain. Did order urinalysis at time of triage, and have ordered basic labs due to the patient's reported fevers, she is somewhat febrile at time of triage 99.1 �F. Patient did have some mild left flank pain/CVA tenderness with palpation, highly suspect possible UTI/Pyelo. 10/21/19 19:04 Urine does demonstrate a UTI in nature, questionable pyelonephritis. Patient does not wish to have any sort of CT done at today's visit. Will treat and discharge home. Urine was sent for culture. Departure - Departure Time of Disposition: 19:05 Disposition: Home, Self-Care 01 Condition: Good Clinical Impression: Pyelonephritis - Discharge Information *PRESCRIPTION DRUG MONITORING PROGRAM REVIEWED*: No *COPY OF PRESCRIPTION DRUG MONITORING REPORT IN PATIENT CRUZ: No Instructions: Pyelonephritis, Adult, [id number] Referrals: Mica Candelaria PELT GRADER [Primary Care Provider] - Forms: ED Department Discharge Additional Instructions: You have been evaluated in the ED for your urinary symptoms. Your urinalysis was consistent with an acute urinary tract infection. Your urine was sent for culture, and you will be notified if you should need a change in your antibiotic. This may take up to 48 hours to result. You have been given a prescription for Cephalexin, 500 mg 1 tablet 2 times a day for 5 days. This has been electronically sent to the [place] pharmacy located in in the [facility] grocery store. Please increase your oral fluid intake and try to stay adequately hydrated. Please return to the ED if your symptoms change or worsen. Sepsis Event Note - Evaluation Sepsis Screening Result: No Definite Risk - Focused Exam Vital Signs: Vital Signs Temp Pulse Resp BP Pulse Ox 10/21/19 18:52 103 H 18 116/66 99 10/21/19 17:57 99.1 F 102 H 18 107/72 100 10/21/19 16:46 99.1 F 105 H 20 115/74 97 Date Exam was Performed: 10/21/19 Time Exam was Performed: 19:04 - My Orders Last 24 Hours: My Active Orders 10/21/19 19:03 CULTURE URINE [RM] Routine - Assessment/Plan Last 24 Hours: My Active Orders 10/21/19 19:03 CULTURE URINE [RM] Routine
[2019-10-21 19:22] VITALS: BP 108/73; PULSE 118
== END 2019-10-21 19:20 | disposition home or self-care (01) ==
LOC: JD.ED 16:02
DX: N12 Tubulo-interstitial nephritis, not specified as acute or chronic (principal)
CPT/HCPCS: 36415; 80053; 81001; 81025; 85007; 85027; 87086; 87088; 87186; 99283; 99284

== ENCOUNTER 2020-08-10 14:09 | Emergency (ER) | payer MEDICAID, OTHER ==
--- NOTE | 2020-08-10 14:21 | EDM.PDOC ---
ED HPI GENERAL MEDICAL PROBLEM - General Chief Complaint: Abdominal Pain Stated Complaint: L SIDE ABD AND FLANK PAIN Time Seen by Provider: 08/10/20 14:38 - History of Present Illness INITIAL COMMENTS - FREE TEXT/NARRATIVE: 29-year-old female presents to the emergency room with abdominal pain. Patient awoke around 6 AM with pretty severe pain on this left flank and lower abdomen. She does have a history of kidney stones. She is also had ovarian cyst. Her last period was about 3-1/2 to 4 weeks ago. She is not had any associated fevers or chills. She is developing some nausea but has not vomited yet. She denies any vaginal discharge and has not noted any blood in her urine. She states there is a possibility she is . - Related Data Allergies Allergy/AdvReac Type Severity Reaction Status Date / Time No Known Allergies Allergy Verified 08/10/20 14:28 Home Meds: Home Meds . 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 C Musculoskeletal History: Reports: None Neurological History: Reports: None Psychiatric History: Reports: Addiction Endocrine/Metabolic History: Reports: None Hematologic History: Reports: None Immunologic History: Reports: None Oncologic (Cancer) History: Reports: None Dermatologic History: Reports: None - Infectious Disease History Infectious Disease History: Reports: Chicken Pox - Past Surgical History HEENT Surgical History: Reports: Tonsillectomy Female Surgical History: Reports: D&C, Oophorectomy Social & Family History - Family History Family Medical History: No Pertinent Family History - Caffeine Use Caffeine Use: Reports: Soda Other Caffeine Use: occassionally - Living Situation & Occupation Living situation: Reports: (), with Family (Parents) Occupation: Unemployed ED ROS GENERAL - Review of Systems Review Of Systems: See Below Constitutional: Reports: No Symptoms HEENT: Reports: No Symptoms Respiratory: Reports: No Symptoms Cardiovascular: Reports: No Symptoms GI/Abdominal: Reports: Abdominal Pain, Nausea. Denies: Constipation, Diarrhea, Vomiting : Reports: Flank Pain. Denies: Discharge, Frequency, Hematuria, Irregular Menses, Urgency Musculoskeletal: Reports: No Symptoms Skin: Reports: No Symptoms Neurological: Reports: No Symptoms ED EXAM, GENERAL - Physical Exam Exam: See Below Exam Limited By: No Limitations General Appearance: Alert, Moderate Distress (From the pain) Head: Atraumatic, Normocephalic Neck: Normal Inspection, Supple, Non-Tender, Full Range of Motion Respiratory/Chest: No Respiratory Distress, Lungs Clear, Normal Breath Sounds Cardiovascular: Regular Rate, Rhythm, No Edema, No Murmur GI/Abdominal: Normal Bowel Sounds, Soft, Other (If you get left-sided abdominal discomfort worse in the area of the pelvis. No rigidity rebound or guarding noted) Back Exam: Normal Inspection. No: CVA Tenderness (L), CVA Tenderness (R) Extremities: Normal Inspection, No Pedal Edema Neurological: Alert, Oriented, Normal Cognition Course - Vital Signs Last Recorded V/S: Last Vital Signs Temp 36.2 C 08/10/20 18:13 Pulse 96 08/10/20 18:13 Resp 16 08/10/20 18:13 BP 123/72 08/10/20 18:13 Pulse Ox 100 08/10/20 18:13 - Orders/Labs/Meds Orders: Active Orders 24 hr Category Date Time Status CULTURE BLOOD [BC] Stat Lab 08/10/20 17:30 Received CULTURE BLOOD [BC] Stat Lab 08/10/20 17:40 Received CULTURE URINE [RM] Stat Lab 08/10/20 16:11 Received cefTRIAXone [Rocephin] 2 gm Med 08/10/20 17:15 Active Sodium Chloride 0.9% [Normal Saline] 100 ml IV Q24H Blood Culture x2 Reflex Set [OM.PC] Stat Oth 08/10/20 17:17 Ordered Medication Orders Ceftriaxone Sodium 2 gm/ (Sodium Chloride) 100 mls @ 200 mls/hr IV Q24H [facility] Last Admin: 08/10/20 18:09 Dose: 200 mls/hr Documented by: ZANE Labs: Laboratory Tests 08/10/20 08/10/20 08/10/20 Range/Units 15:20 15:20 16:11 WBC 16.01 H (3.98-10.04) K/mm3 RBC 4.55 (3.98-5.22) M/mm3 Hgb 12.1 (11.2-15.7) gm/dl Hct 37.9 (34.1-44.9) % MCV 83.3 (79.4-94.8) fl MCH 26.6 (25.6-32.2) pg MCHC 31.9 L (32.2-35.5) g/dl RDW Std Deviation 41.0 (36.4-46.3) fL Plt Count 250 (182-369) K/mm3 MPV 10.4 (9.4-12.3) fl Neut % (Auto) 82.5 H (34.0-71.1) % Lymph % (Auto) 8.0 L (19.3-51.7) % Castro % (Auto) 8.2 (4.7-12.5) % Eos % (Auto) 1.1 (0.7-5.8) Baso % (Auto) 0.1 (0.1-1.2) % Neut # (Auto) 13.21 H (1.56-6.13) K/mm3 Lymph # (Auto) 1.28 (1.18-3.74) K/mm3 Castro # (Auto) 1.32 H (0.24-0.36) K/mm3 Eos # (Auto) 0.17 (0.04-0.36) K/mm3 Baso # (Auto) 0.01 (0.01-0.08) K/mm3 Manual Slide Review Abnormal smear Sodium 140 (136-145) mEq/L Potassium 4.0 (3.5-5.1) mEq/L Chloride 105 (98-107) mEq/L Carbon Dioxide 25 (21-32) mEq/L Anion Gap 14.0 (5-15) BUN 14 (7-18) mg/dL Creatinine 0.7 (0.55-1.02) mg/dL Est Cr Clr Drug Dosing 92.94 mL/min Estimated GFR (MDRD) > 60 (>60) mL/min BUN/Creatinine Ratio 20.0 H (14-18) Glucose 102 (74-106) mg/dL Calcium 8.4 L (8.5-10.1) mg/dL Total Bilirubin 0.2 (0.2-1.0) mg/dL AST 15 (15-37) U/L ALT 23 (14-59) U/L Alkaline Phosphatase 60 (46-116) U/L Total Protein 7.3 (6.4-8.2) g/dl Albumin 3.2 L (3.4-5.0) g/dl Globulin 4.1 gm/dL Albumin/Globulin Ratio 0.8 L (1-2) Lipase 209 (73-393) U/L Urine Color Yellow (Yellow) Urine Appearance Slt cloudy H (Clear) Urine pH 7.5 (5.0-8.0) Ur Specific [place] 1.025 (1.005-1.030) Urine Protein Trace H (Negative) Urine Glucose (UA) Negative (Negative) Urine Ketones Negative (Negative) Urine Occult Blood 1+ H (Negative) Urine Nitrite Positive H (Negative) Urine Bilirubin Negative (Negative) Urine Urobilinogen 0.2 (0.2-1.0) Ur Leukocyte Esterase 1+ H (Negative) Urine RBC 10-20 H (0-5) /hpf Urine WBC 40-50 H (0-5) /hpf Ur Squamous Epith Cells 5-10 H (0-5) /hpf Urine Bacteria Many H (FEW) /hpf Urine Mucus Few (FEW) /hpf Urine HCG, Qual (NEGATIVE) 08/10/20 Range/Units 16:11 WBC (3.98-10.04) K/mm3 RBC (3.98-5.22) M/mm3 Hgb (11.2-15.7) gm/dl Hct (34.1-44.9) % MCV (79.4-94.8) fl MCH (25.6-32.2) pg MCHC (32.2-35.5) g/dl RDW Std Deviation (36.4-46.3) fL Plt Count (182-369) K/mm3 MPV (9.4-12.3) fl Neut % (Auto) (34.0-71.1) % Lymph % (Auto) (19.3-51.7) % Castro % (Auto) (4.7-12.5) % Eos % (Auto) (0.7-5.8) Baso % (Auto) (0.1-1.2) % Neut # (Auto) (1.56-6.13) K/mm3 Lymph # (Auto) (1.18-3.74) K/mm3 Castro # (Auto) (0.24-0.36) K/mm3 Eos # (Auto) (0.04-0.36) K/mm3 Baso # (Auto) (0.01-0.08) K/mm3 Manual Slide Review Sodium (136-145) mEq/L Potassium (3.5-5.1) mEq/L Chloride (98-107) mEq/L Carbon Dioxide (21-32) mEq/L Anion Gap (5-15) BUN (7-18) mg/dL Creatinine (0.55-1.02) mg/dL Est Cr Clr Drug Dosing mL/min Estimated GFR (MDRD) (>60) mL/min BUN/Creatinine Ratio (14-18) Glucose (74-106) mg/dL Calcium (8.5-10.1) mg/dL Total Bilirubin (0.2-1.0) mg/dL AST (15-37) U/L ALT (14-59) U/L Alkaline Phosphatase (46-116) U/L Total Protein (6.4-8.2) g/dl Albumin (3.4-5.0) g/dl Globulin gm/dL Albumin/Globulin Ratio (1-2) Lipase (73-393) U/L Urine Color (Yellow) Urine Appearance (Clear) Urine pH (5.0-8.0) Ur Specific [place] (1.005-1.030) Urine Protein (Negative) Urine Glucose (UA) (Negative) Urine Ketones (Negative) Urine Occult Blood (Negative) Urine Nitrite (Negative) Urine Bilirubin (Negative) Urine Urobilinogen (0.2-1.0) Ur Leukocyte Esterase (Negative) Urine RBC (0-5) /hpf Urine WBC (0-5) /hpf Ur Squamous Epith Cells (0-5) /hpf Urine Bacteria (FEW) /hpf Urine Mucus (FEW) /hpf Urine HCG, Qual Negative (NEGATIVE) Meds: Medications Generic Name Dose Route Start Last Admin Trade Name Freq PRN Reason Stop Dose Admin Ceftriaxone Sodium 2 gm/ 100 mls @ 200 mls/hr 08/10/20 17:15 08/10/20 18:09 Sodium Chloride IV 200 mls/hr Q24H [facility] Administration Discontinued Medications Generic Name Dose Route Start Last Admin Trade Name Freq PRN Reason Stop Dose Admin Fentanyl 50 mcg 08/10/20 14:47 08/10/20 15:14 Sublimaze IVPUSH 08/10/20 14:48 50 mcg ONETIME ONE Administration Fentanyl 50 mcg 08/10/20 18:13 08/10/20 18:18 Sublimaze IVPUSH 08/10/20 18:14 50 mcg ONETIME ONE Administration Hydromorphone HCl 0.5 mg 08/10/20 17:10 08/10/20 17:20 Dilaudid IVPUSH 08/10/20 17:11 0.5 mg ONETIME ONE Administration Lactated Ringer's 1,000 mls @ 125 mls/hr 08/10/20 15:00 08/10/20 15:14 Ringers, Lactated IV 125 mls/hr ASDIRECTED [place] Administration Ondansetron HCl 4 mg 08/10/20 14:47 08/10/20 15:14 Zofran IVPUSH 08/10/20 14:48 4 mg ONETIME ONE Administration Ondansetron HCl 4 mg 08/10/20 18:21 08/10/20 18:24 Zofran IVPUSH 08/10/20 18:22 4 mg ONETIME ONE Administration - Re-Assessments/Exams Free Text/Narrative Re-Assessment/Exam: 08/10/20 17:16 Patient has a urinary tract infection but her pain is very much acting like a kidney stone we will go ahead and check a CT KUB looking for stone the patient will have her LR stopped we will give her 2 g of Rocephin. 08/10/20 19:05 CT shows a large 1.6 cm stone stuck in the very proximal ureter. With some inflammatory changes. The CT report mentions that the stone had been seen in the past. I have reviewed our records and cannot find a copy of the CT report prior. I discussed the situation with Dr Salas urologist and he says that CT was done in 2017, and at that time he described it as a stone that could cause intermittent obstruction. The stone has moved slightly more distal. The patient will be sent to [facility]. Case discussed with Dr. Jaramillo and Dr. Cates accepting as the hospitalist Departure - Departure Time of Disposition: 18:10 Disposition: DC/Tfer to [facility] 02 Clinical Impression: Calculus of left kidney Urinary tract infection Qualifiers: Urinary tract infection type: acute cystitis Hematuria presence: with hematuria Qualified Code(s): N30.01 - Acute cystitis with hematuria - Discharge Information Referrals: PCP,None [Primary Care Provider] - Forms: ED Department Discharge Sepsis Event Note (ED) - Focused Exam Vital Signs: Vital Signs Temp Pulse Resp BP Pulse Ox 08/10/20 18:13 36.2 C 96 16 123/72 100 08/10/20 14:23 36.1 C 104 H 16 133/80 100 - My Orders Last 24 Hours: My Active Orders 08/10/20 16:11 CULTURE URINE [RM] Stat 08/10/20 17:15 cefTRIAXone [Rocephin] 2 gm Sodium Chloride 0.9% [Normal Saline] 100 ml IV Q24H 08/10/20 17:17 Blood Culture x2 Reflex Set [OM.PC] Stat 08/10/20 17:30 CULTURE BLOOD [BC] Stat 08/10/20 17:40 CULTURE BLOOD [BC] Stat - Assessment/Plan Last 24 Hours: My Active Orders 08/10/20 16:11 CULTURE URINE [RM] Stat 08/10/20 17:15 cefTRIAXone [Rocephin] 2 gm Sodium Chloride 0.9% [Normal Saline] 100 ml IV Q24H 08/10/20 17:17 Blood Culture x2 Reflex Set [OM.PC] Stat 08/10/20 17:30 CULTURE BLOOD [BC] Stat 08/10/20 17:40 CULTURE BLOOD [BC] Stat
[2020-08-10] MEDS ORDERED: fentaNYL 100 MCG/2 ML SDV IVPUSH ONE ×2 (14:47→18:13)
[2020-08-10] MEDS ORDERED: Ondansetron 4 MG/2 ML SDV IVPUSH ONE ×2 (14:47→18:21)
[2020-08-10] MEDS ORDERED: Lactated Ringers 1,000 ML IV SCH (15:00)
[2020-08-10] MEDS ORDERED: HYDROmorphone 0.5 MG/0.5 ML Syringe IVPUSH ONE (17:10)
[2020-08-10] MEDS ORDERED: cefTRIAXone 2 GM in Sodium Chloride 0.9% 100 ML IV SCH (17:15)
[2020-08-10 18:13] VITALS: BP 123/72; PULSE 96
--- NOTE | 2020-08-10 18:24 | CT ---
CT abdomen and pelvis Technique: Multiple axial sections were obtained from above the dome of the diaphragm inferiorly through the pubic symphysis. Intravenous and oral contrast was not utilized. Study has been performed as a ureteral stone protocol. Reconstructed coronal and sagittal images were obtained. Comparison: Prior CT abdomen and pelvis study of 03/22/17. Findings: Left kidney shows a dilated renal pelvis with mild surrounding inflammatory change. This finding is caused by a large 1.6 cm stone located at the UPJ. No other ureteral calculi are seen. No other renal calculi are noted. Visualized lung bases show nothing acute. Liver contains no focal parenchymal abnormality. Gallbladder contains no calcified gallstones. Spleen is normal. Adrenal glands show no nodule. Pancreas shows no discrete abnormality. Aorta shows no aneurysm. No retroperitoneal adenopathy or mesenteric abnormalities are seen. Fat-containing umbilical hernias are noted. Appendix is seen which is normal in size. No pelvic mass or adenopathy is seen. Very minimal amount of free fluid is seen within the pelvis believed to be physiologic. Bone window settings were reviewed which appear within normal limits for the patient's age. Impression: 1. Large left sided stone causing obstruction at the UPJ with mild inflammatory change around the left kidney. This stone is seen on prior study. This stone measures about 1.6 cm in size. 2. Fat-containing umbilical hernias. 3. Nothing acute is otherwise appreciated. Diagnostic code #3
== END 2020-08-10 19:30 ==
LOC: JD.ED 14:09
DX: N30.01 Acute cystitis with hematuria (principal); N20.2 Calculus of kidney with calculus of ureter
CPT/HCPCS: 36415; 74176; 80053; 81001; 81025; 83690; 85025; 87040; 87086; 87088; 87184; 87186; 96365; 96375; 96376; 99285; J0696; J1170; J2405; J3010; J7120; 99284

== ENCOUNTER 2021-04-29 10:41 | Emergency (ER) | payer MEDICAID ==
[2021-04-29 10:52] VITALS: BP 124/89; PULSE 92
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
--- NOTE | 2021-04-29 12:38 | CT ---
Head CT Technique: Multiple axial sections through the brain were obtained. Intravenous contrast was not utilized. Reconstructed coronal and sagittal images were obtained. Comparison: Prior MRI brain of 04/14/14. Findings: Ventricles along with basal cisterns and sulci over the convexities are within normal limits for the patient's age. No abnormal parenchymal densities are seen. No evidence of intracranial hemorrhage is seen. No midline shift or mass-effect is seen. Bone window settings were reviewed. Visualized mastoid sinuses and paranasal sinuses show nothing acute. No acute calvarial abnormality is appreciated. Impression: 1. Nothing acute is seen on noncontrast head CT study. Diagnostic code #1
--- NOTE | 2021-04-29 12:39 | CT ---
CT cervical spine Technique: Multiple axial sections were obtained from above C1 inferiorly to the bottom of T2. Reconstructed coronal and sagittal images were obtained. Comparison: No prior cervical spine imaging is available. Findings: Vertebral body heights and disc spaces are maintained. No bony central or bony neural foraminal stenosis is seen. No fracture or subluxation is seen. Impression: 1. Nothing acute is seen on CT study of the cervical spine. Diagnostic code #1
== END 2021-04-29 12:57 | disposition home or self-care (01) ==
LOC: JD.ED 10:41
DX: S06.0X0A Concussion without loss of consciousness, initial encounter (principal); T76.21XA Adult sexual abuse, suspected, initial encounter; S00.83XA Contusion of other part of head, initial encounter; Z86.16 Personal history of COVID-19; Y04.0XXA Assault by unarmed brawl or fight, initial encounter
CPT/HCPCS: 70450; 70450-26; 72125; 72125-26; 81025; 99285-25

== ENCOUNTER 2022-05-25 19:31 | Emergency (ER) | payer MEDICAID ==
[2022-05-25 20:06] VITALS: BP 118/69; PULSE 85
== END 2022-05-25 20:50 | disposition home or self-care (01) ==
LOC: JD.ED 19:31
DX: K02.9 Dental caries, unspecified (principal)
CPT/HCPCS: 99282

== ENCOUNTER 2022-07-15 17:54 | Emergency (ER) | payer MEDICAID ==
[2022-07-15] MEDS ORDERED: Sodium Chloride 0.9% 10 ML Syringe FLUSH PRN (18:19)
[2022-07-15] MEDS ORDERED: HYDROmorphone 0.5 MG/0.5 ML Syringe IVPUSH ONE (18:20)
[2022-07-15] MEDS ORDERED: Ondansetron 4 MG/2 ML SDV IVPUSH ONE (18:20)
[2022-07-15 18:51] LABS: ESTIMATED GFR 100 mL/min (>60)
[2022-07-15] MEDS ORDERED: Sodium Chloride 0.9% 10 ML Syringe FLUSH ONE (19:19)
[2022-07-15] MEDS ORDERED: Iopamidol 612 MG/ML 100 ML Bottle IVPUSH ONE (19:19)
[2022-07-15 21:04] VITALS: BP 105/66; PULSE 87
== END 2022-07-15 20:30 | disposition home or self-care (01) ==
LOC: JD.ED 17:54
DX: N83.202 Unspecified ovarian cyst, left side (principal); R11.0 Nausea
CPT/HCPCS: 36415; 74177; 80053; 81001; 81025; 85025; 86140; 87086; 96374; 96375; 99284; J1170; J2405; J3490; Q9967; 99283

== ENCOUNTER 2023-02-18 19:35 | Emergency (ER) | payer MEDICAID ==
[2023-02-18 22:22] VITALS: BP 122/74; PULSE 80
== END 2023-02-18 22:00 | disposition home or self-care (01) ==
LOC: JD.ED 19:35
DX: J06.9 Acute upper respiratory infection, unspecified (principal); Z20.822 Contact with and (suspected) exposure to COVID-19; Z86.16 Personal history of COVID-19
CPT/HCPCS: 87651-QW; 87804; 87807; 99282; 99283; U0002

== ENCOUNTER 2023-04-27 06:34 | Emergency (ER) | payer MEDICAID ==
[2023-04-27 06:48] VITALS: BP 127/78; PULSE 92
[2023-04-27 07:31] LABS: APPEARANCE,URINE SLT CLOUDY (Clear); BILIRUBIN,URINE NEGATIVE (Negative); COLOR,URINE DARK YELLOW (Yellow); GLUCOSE,URINE NEGATIVE (Negative); KETONES,URINE TRACE (Negative); LEUKOCYTE ESTERASE,URINE 1+ (Negative); NITRITE,URINE NEGATIVE (Negative); OCCULT BLOOD,URINE 3+ (Negative); PH,URINE 5.5 (5.0-8.0); PROTEIN,URINE 1+ (Negative); UROBILINOGEN,URINE 0.2 (0.2-1.0)
[2023-04-27 07:38] LABS: BACTERIA,URINE MANY /hpf (FEW); MUCUS,URINE MODERATE /hpf (FEW); RBC,URINE 50-75 /hpf (0-5)
[2023-04-27 08:07] LABS: BASOPHILS PERCENT AUTO 0.1 % (0.0-1.0); EOSINOPHILS ABSOLUTE AUTO 0.2 K/mm3 (0.0-0.4); EOSINOPHILS PERCENT AUTO 2.4 % (0.0-6.0); HEMATOCRIT 38.7 % (37.0-47.0); HEMOGLOBIN 13.1 gm/dl (12.0-16.0); IMMATURE GRAN ABSOLUTE AUTO 0.02 K/mm3 (0.00-0.05); IMMATURE GRAN PERCENT AUTO 0.2 % (0.0-0.4); LYMPHOCYTES ABSOLUTE AUTO 1.5 K/mm3 (1.0-4.8); LYMPHOCYTES PERCENT AUTO 18.3 % (24.0-44.0); MEAN CORPUSCULAR HEMOGLOBIN 27.8 pg (28.0-32.0); MEAN CORPUSCULAR HGB CONC 33.9 g/dl (32.0-36.0); MEAN CORPUSCULAR VOLUME 82.2 fl (83.0-99.0); MONOCYTES ABSOLUTE AUTO 0.7 K/mm3 (0.0-0.8); MONOCYTES PERCENT AUTO 8.8 % (0.0-8.0); NEUTROPHILS ABSOLUTE AUTO 5.6 K/mm3 (1.8-7.7); NEUTROPHILS PERCENT AUTO 70.2 % (41.0-71.0); PLATELET COUNT,PLT 223 K/mm3 (150-400); RED BLOOD CELL COUNT 4.71 M/mm3 (4.10-5.30); WHITE BLOOD CELL COUNT,WBC 8.03 K/mm3 (3.9-11.3)
[2023-04-27 10:00] LABS: APPEARANCE,URINE CLEAR (Clear); BILIRUBIN,URINE NEGATIVE (Negative); COLOR,URINE YELLOW (Yellow); GLUCOSE,URINE NEGATIVE (Negative); KETONES,URINE NEGATIVE (Negative); LEUKOCYTE ESTERASE,URINE NEGATIVE (Negative); NITRITE,URINE NEGATIVE (Negative); OCCULT BLOOD,URINE NEGATIVE (Negative); PROTEIN,URINE NEGATIVE (Negative); UROBILINOGEN,URINE 0.2 (0.2-1.0)
== END 2023-04-27 14:08 | disposition home or self-care (01) ==
LOC: JD.ED 06:34
DX: O20.8 Other hemorrhage in early pregnancy (principal); Z3A.12 12 weeks gestation of pregnancy; Z86.16 Personal history of COVID-19
CPT/HCPCS: 36415; 76801; 81001; 81003; 84702; 85025; 87086; 87088; 87186; 99284; C1758

== ENCOUNTER 2023-05-10 19:28 | Emergency (ER) | payer MEDICAID ==
[2023-05-10 20:27] VITALS: BP 116/69; PULSE 90
== END 2023-05-10 21:17 | disposition home or self-care (01) ==
LOC: JD.ED 19:28
DX: O98.511 Other viral diseases complicating pregnancy, first trimester (principal); U07.1 COVID-19; Z79.899 Other long term (current) drug therapy; Z3A.13 13 weeks gestation of pregnancy
CPT/HCPCS: 99283

== ENCOUNTER 2023-05-12 04:29 | Emergency (ER) | payer MEDICAID ==
[2023-05-12] MEDS ORDERED: Sodium Chloride 0.9% 10 ML Syringe FLUSH PRN (05:20)
[2023-05-12] MEDS ORDERED: Sodium Chloride 0.9% 1,000 ML IV STA (05:20)
[2023-05-12] MEDS ORDERED: Ondansetron 4 MG/2 ML SDV IVPUSH ONE ×2 (05:20→06:58)
[2023-05-12] MEDS ORDERED: HYDROmorphone 0.5 MG/0.5 ML Syringe IVPUSH ONE ×2 (05:21→08:30)
[2023-05-12 05:36] LABS: BASOPHILS PERCENT AUTO 0.1 % (0.0-1.0); EOSINOPHILS ABSOLUTE AUTO 0.1 K/mm3 (0.0-0.4); EOSINOPHILS PERCENT AUTO 0.7 % (0.0-6.0); HEMATOCRIT 42.5 % (37.0-47.0); HEMOGLOBIN 14.4 gm/dl (12.0-16.0); IMMATURE GRAN ABSOLUTE AUTO 0.06 K/mm3 (0.00-0.05); IMMATURE GRAN PERCENT AUTO 0.4 % (0.0-0.4); LYMPHOCYTES ABSOLUTE AUTO 0.9 K/mm3 (1.0-4.8); LYMPHOCYTES PERCENT AUTO 5.9 % (24.0-44.0); MEAN CORPUSCULAR HEMOGLOBIN 27.4 pg (28.0-32.0); MEAN CORPUSCULAR HGB CONC 33.9 g/dl (32.0-36.0); MEAN PLATELET VOLUME 10.9 fl (9.4-12.3); MONOCYTES ABSOLUTE AUTO 0.7 K/mm3 (0.0-0.8); MONOCYTES PERCENT AUTO 4.8 % (0.0-8.0); NEUTROPHILS PERCENT AUTO 88.1 % (41.0-71.0); PLATELET COUNT,PLT 265 K/mm3 (150-400); RED BLOOD CELL COUNT 5.25 M/mm3 (4.10-5.30); WHITE BLOOD CELL COUNT,WBC 14.81 K/mm3 (3.9-11.3)
[2023-05-12 05:37] LABS: A/G RATIO 0.7 (1-2); ALBUMIN 3.2 g/dl (3.4-5.0); ANION GAP 17.9 (5-15); BILIRUBIN TOTAL 0.3 mg/dL (0.2-1.0); CALCIUM 8.9 mg/dL (8.5-10.1); CREATININE 0.6 mg/dL (0.55-1.02); EST CRCL DRUG DOSING (CG) 105.48 mL/min; POTASSIUM,K 3.9 mEq/L (3.5-5.1); PROTEIN TOTAL,TP 7.9 g/dl (6.4-8.2)
[2023-05-12 06:58] LABS: APPEARANCE,URINE CLEAR (Clear); BILIRUBIN,URINE NEGATIVE (Negative); COLOR,URINE YELLOW (Yellow); GLUCOSE,URINE NEGATIVE (Negative); KETONES,URINE TRACE (Negative); LEUKOCYTE ESTERASE,URINE TRACE (Negative); NITRITE,URINE NEGATIVE (Negative); OCCULT BLOOD,URINE NEGATIVE (Negative); PH,URINE 5.5 (5.0-8.0); PROTEIN,URINE 1+ (Negative); UROBILINOGEN,URINE 0.2 (0.2-1.0)
[2023-05-12 07:25] LABS: BACTERIA,URINE MODERATE /hpf (FEW); MUCUS,URINE MODERATE /hpf (FEW); RBC,URINE 0-5 /hpf (0-5); SQUAMOUS EPITHELIAL CELLS,UR 0-5 /hpf (0-5); WBC,URINE 0-5 /hpf (0-5)
[2023-05-12] MEDS ORDERED: Naloxone 0.4 MG/ML SDV IVPUSH PRN (08:30)
[2023-05-12] MEDS ORDERED: Famotidine 20 MG/2 ML SDV IVPUSH ONE ×2 (09:08→10:15)
[2023-05-12] MEDS ORDERED: Aluminum Hydroxide/Magnesium Hydroxide/Simethicone Susp 30 ML Cup PO ONE (09:11)
[2023-05-12] MEDS ORDERED: Pantoprazole 40 MG in Sodium Chloride 0.9% 100 ML IV ONE (10:06)
[2023-05-12] MEDS ORDERED: Pantoprazole 40 MG Vial IVPUSH ONE (10:17)
[2023-05-12 11:21] VITALS: BP 115/78; PULSE 92
== END 2023-05-12 11:15 | disposition home or self-care (01) ==
LOC: JD.ED 04:29
DX: O99.611 Diseases of the digestive system complicating pregnancy, first trimester (principal); K29.00 Acute gastritis without bleeding; Z79.899 Other long term (current) drug therapy; Z3A.13 13 weeks gestation of pregnancy
CPT/HCPCS: 36415; 76705; 76802; 80053; 81001; 83690; 85025; 96361; 96374; 96375; 96376; 99284; A9270; C9113; J1170; J2405; J3490; J7030

== ENCOUNTER 2023-11-09 06:51 | Inpatient (IN) | payer MEDICAID ==
[~2023-11-09 06:51] MED LIST: Bupivacaine 0.25% 10 ML SDV ONE
[2023-11-09] MEDS ORDERED: ePHEDrine 50 MG/ML SDV IVPUSH PRN (07:08)
[2023-11-09] MEDS ORDERED: diphenhydrAMINE 50 MG/ML SDV IVPUSH PRN (07:08)
[2023-11-09] MEDS ORDERED: Nalbuphine 10 MG/ML Syringe IVPUSH PRN (07:23)
[2023-11-09] MEDS ORDERED: Calcium Carbonate 500 MG Tab.Chew PO PRN (07:23)
[2023-11-09] MEDS ORDERED: Lidocaine 1% 50 ML MDV INJECT PRN (07:23)
[2023-11-09 07:55] LABS: BASOPHILS PERCENT AUTO 0.3 % (0.0-1.0); EOSINOPHILS ABSOLUTE AUTO 0.2 K/mm3 (0.0-0.4); EOSINOPHILS PERCENT AUTO 1.3 % (0.0-6.0); HEMATOCRIT 35.1 % (37.0-47.0); IMMATURE GRAN ABSOLUTE AUTO 0.07 K/mm3 (0.00-0.05); IMMATURE GRAN PERCENT AUTO 0.6 % (0.0-0.4); LYMPHOCYTES ABSOLUTE AUTO 1.5 K/mm3 (1.0-4.8); LYMPHOCYTES PERCENT AUTO 12.7 % (24.0-44.0); MEAN CORPUSCULAR HEMOGLOBIN 22.4 pg (28.0-32.0); MEAN CORPUSCULAR HGB CONC 31.1 g/dl (32.0-36.0); MEAN PLATELET VOLUME 11.2 fl (9.4-12.3); MONOCYTES ABSOLUTE AUTO 0.8 K/mm3 (0.0-0.8); MONOCYTES PERCENT AUTO 7.2 % (0.0-8.0); NEUTROPHILS ABSOLUTE AUTO 9.1 K/mm3 (1.8-7.7); NEUTROPHILS PERCENT AUTO 77.9 % (41.0-71.0); PLATELET COUNT,PLT 245 K/mm3 (150-400); RED BLOOD CELL COUNT 4.87 M/mm3 (4.10-5.30); WHITE BLOOD CELL COUNT,WBC 11.69 K/mm3 (3.9-11.3)
[2023-11-09] MEDS: Oxytocin/Lactated Ringers 30 UNIT/500 ML BAG IV SCH ×2 (08:23→19:12)
[2023-11-09] MEDS: Lactated Ringers 1,000 ML IV SCH (08:23)
[2023-11-09 08:25] LABS: HEMOGLOBIN 10.9 gm/dl (12.0-16.0); MEAN CORPUSCULAR VOLUME 72.1 fl (83.0-99.0)
[2023-11-09] MEDS: Bupivacaine/fentaNYL/NS 100 ML Bag EPIDUR PRN (13:13)
[2023-11-09] MEDS: fentaNYL 100 MCG/2 ML SDV EPIDUR PRN (13:13)
[2023-11-09] MEDS: Ondansetron 4 MG/2 ML SDV IVPUSH PRN (14:59)
[2023-11-09] MEDS: Acetaminophen 325 MG Tab PO PRN (19:32)
[2023-11-09] MEDS ORDERED: Oxytocin/Lactated Ringers 30 UNIT/500 ML BAG IV SCH (19:35)
[2023-11-09] MEDS ORDERED: Docusate Sodium 100 MG Cap PO PRN (19:35)
[2023-11-09] MEDS ORDERED: Hydrocortisone Acetate 25 MG Supp RECTAL PRN (19:35)
[2023-11-09] MEDS ORDERED: Acetaminophen 325 MG Tab PO PRN (19:35)
[2023-11-09] MEDS ORDERED: Magnesium Hydroxide 400 MG/5 ML Susp 30 ML Cup PO PRN (19:35)
[2023-11-09] MEDS: Benzocaine/Menthol 20%-0.5% Spray 78 GM Cannister TOP PRN (20:04)
[2023-11-09] MEDS: Witch Hazel Medicated Pads 40/Jar TOP PRN (20:04)
[2023-11-10] MEDS: Ibuprofen 600 MG Tab PO SCH (02:06)
[2023-11-10] MEDS: Prenatal Multivitamin with Calcium/Folic Acid/Iron Tab PO SCH (09:06)
[2023-11-11] MEDS: Measles, Mumps & Rubella Vaccine 0.5 ML SDV SUBCUT ONE (08:44)
[2023-11-11 10:33] VITALS: BP 132/97; PULSE 90
== END 2023-11-11 09:10 | disposition home or self-care (01) | DRG 807 ==
LOC: JD.OB 06:51 → OBSVTOIN 19:12 → JD.OB 19:13
PROVIDERS: ADMIT Obstetrics & Gynecology; ATTEND Obstetrics & Gynecology
PROC: 10D07Z6 Extraction of Products of Conception, Vacuum, Via Natural or Artificial Opening (ICD-10-PCS; principal; 2023-11-09)
PROC: 0HQ9XZZ Repair Perineum Skin, External Approach (ICD-10-PCS; 2023-11-09)
PROC: 3E0234Z Introduction of Serum, Toxoid and Vaccine into Muscle, Percutaneous Approach (ICD-10-PCS; 2023-11-09)
PROC: 3E0R3BZ Introduction of Anesthetic Agent into Spinal Canal, Percutaneous Approach (ICD-10-PCS; 2023-11-09)
PROC: 00HU33Z Insertion of Infusion Device into Spinal Canal, Percutaneous Approach (ICD-10-PCS; 2023-11-09)
DX: O69.81X0 Labor and delivery complicated by cord around neck, without compression, not applicable or unspecified (principal); Z37.0 Single live birth; Z3A.39 39 weeks gestation of pregnancy; O70.0 First degree perineal laceration during delivery; O77.0 Labor and delivery complicated by meconium in amniotic fluid; Z23 Encounter for immunization
CPT/HCPCS: 36415; 51701; 51702; 59025; 59409; 85025; 86592; 86850; 86900; 86901; 90707; A9270-GY; J0665; J2405; J3010; J3490; J7120; J7999

== ENCOUNTER 2024-11-23 13:54 | Inpatient (IN) | payer MEDICAID ==
[2024-11-23 14:56] LABS: BASOPHILS PERCENT AUTO 0.1 % (0.0-1.0); EOSINOPHILS ABSOLUTE AUTO 0.1 K/mm3 (0.0-0.4); EOSINOPHILS PERCENT AUTO 0.9 % (0.0-6.0); HEMATOCRIT 28.8 % (37.0-47.0); IMMATURE GRAN ABSOLUTE AUTO 0.04 K/mm3 (0.00-0.05); IMMATURE GRAN PERCENT AUTO 0.4 % (0.0-0.4); LYMPHOCYTES ABSOLUTE AUTO 1.3 K/mm3 (1.0-4.8); LYMPHOCYTES PERCENT AUTO 12.3 % (24.0-44.0); MEAN CORPUSCULAR HEMOGLOBIN 20.1 pg (28.0-32.0); MEAN CORPUSCULAR HGB CONC 30.2 g/dl (32.0-36.0); MEAN PLATELET VOLUME 10.6 fl (9.4-12.3); MONOCYTES ABSOLUTE AUTO 0.6 K/mm3 (0.0-0.8); MONOCYTES PERCENT AUTO 5.8 % (0.0-8.0); NEUTROPHILS ABSOLUTE AUTO 8.5 K/mm3 (1.8-7.7); NEUTROPHILS PERCENT AUTO 80.5 % (41.0-71.0); PLATELET COUNT,PLT 210 K/mm3 (150-400); RED BLOOD CELL COUNT 4.32 M/mm3 (4.10-5.30); WHITE BLOOD CELL COUNT,WBC 10.53 K/mm3 (3.9-11.3)
[2024-11-23 15:01] LABS: HEMOGLOBIN 8.7 gm/dl (12.0-16.0); MEAN CORPUSCULAR VOLUME 66.7 fl (83.0-99.0)
[2024-11-23 15:10] LABS: PROTEIN CREATININE RATIO,URINE 180.2 mg/g (0-149); PROTEIN,URINE RANDOM 46.3 mg/dL (0.0-11.8)
[2024-11-23] MEDS ORDERED: Lidocaine 1% 50 ML MDV INJECT PRN (15:10)
[2024-11-23] MEDS ORDERED: Nalbuphine 10 MG/1 ML Vial IVPUSH PRN (15:10)
[2024-11-23] MEDS ORDERED: Calcium Carbonate 500 MG Tab.Chew PO PRN (15:10)
[2024-11-23] MEDS ORDERED: Sodium Chloride 0.9% 10 ML Syringe FLUSH PRN (15:10)
[2024-11-23 15:14] LABS: CREATININE 0.6 mg/dL (0.55-1.02); EST CRCL DRUG DOSING (CG) 103.5 mL/min; URIC ACID 4.3 mg/dL (2.6-6.0)
[2024-11-23] MEDS ORDERED: Oxytocin/0.9 % Sodium Chloride 30 UNIT/500 ML BAG IV SCH (15:15)
[2024-11-23] MEDS: Ampicillin 2 GM in Sodium Chloride 0.9% 100 ML IV ONE (15:52)
[2024-11-23] MEDS: Lactated Ringers 1,000 ML IV SCH (15:52)
[2024-11-23] MEDS: Oxytocin/0.9 % Sodium Chloride 30 UNIT/500 ML BAG IV SCH (15:55)
[2024-11-23 17:23] LABS: SLIDE REVIEW ABNORMAL SMEAR
[2024-11-23] MEDS: Ampicillin 1 GM in Sodium Chloride 0.9% 100 ML IV SCH (19:53)
[2024-11-23] MEDS ORDERED: ePHEDrine 50 MG/ML SDV IVPUSH PRN (20:13)
[2024-11-23] MEDS: fentaNYL 100 MCG/2 ML SDV EPIDUR PRN (20:19)
[2024-11-23] MEDS: Bupivacaine/fentaNYL/NS 100 ML Bag EPIDUR PRN (20:20)
[2024-11-23] MEDS: Ondansetron 4 MG/2 ML SDV IVPUSH PRN (21:10)
[2024-11-24] MEDS: Tranexamic Acid 1,000 MG/10 ML Vial IVPUSH ONE (00:40)
[2024-11-24] MEDS: diphenhydrAMINE 50 MG/ML SDV IVPUSH PRN (01:02)
[2024-11-24] MEDS: Acetaminophen 325 MG Tab PO PRN (01:02)
[2024-11-24] MEDS ORDERED: Docusate Sodium 100 MG Cap PO PRN (01:03)
[2024-11-24] MEDS: Witch Hazel Medicated Pads 40/Jar TOP PRN (01:06)
[2024-11-24] MEDS: Benzocaine/Menthol 20%-0.5% Spray 78 GM Cannister TOP PRN (01:07)
[2024-11-24] MEDS: Tranexamic Acid 1,000 MG/10 ML Vial ONE (01:56)
[2024-11-24] MEDS ORDERED: Sodium Chloride 0.9% 10 ML SDV ONE (07:00)
[2024-11-24] MEDS ORDERED: Bupivacaine 0.25% 10 ML SDV ONE (07:00)
[2024-11-24] MEDS: Ibuprofen 600 MG Tab PO SCH (07:23)
[2024-11-25] MEDS: Acetaminophen 325 MG Tab PO PRN (05:45)
[2024-11-25 09:44] VITALS: BP 126/77; PULSE 85
== END 2024-11-25 11:02 | disposition home or self-care (01) | DRG 807 ==
LOC: JD.OBCHECK 13:54 → JD.OB 13:55 → JD.OBCHECK 15:13 → OBSVTOIN 11-24 00:40 → JD.OB 11-24 00:41
PROVIDERS: ADMIT Obstetrics & Gynecology; ATTEND Obstetrics & Gynecology
PROC: 10907ZC Drainage of Amniotic Fluid, Therapeutic from Products of Conception, Via Natural or Artificial Opening (ICD-10-PCS; principal; 2024-11-24)
PROC: 3E0R3BZ Introduction of Anesthetic Agent into Spinal Canal, Percutaneous Approach (ICD-10-PCS; principal; 2024-11-24)
PROC: 10E0XZZ Delivery of Products of Conception, External Approach (ICD-10-PCS; principal; 2024-11-24)
DX: O13.4 Gestational [pregnancy-induced] hypertension without significant proteinuria, complicating childbirth (principal); Z37.0 Single live birth; O99.214 Obesity complicating childbirth; Z3A.37 37 weeks gestation of pregnancy; O99.02 Anemia complicating childbirth; Z86.16 Personal history of COVID-19; Z90.49 Acquired absence of other specified parts of digestive tract; Z98.890 Other specified postprocedural states; Z79.82 Long term (current) use of aspirin; Z79.899 Other long term (current) drug therapy
CPT/HCPCS: 36415; 51701; 51702; 59025; 59409; 82565; 82570; 83615; 84156; 84450; 84460; 84520; 84550; 85025; 86592; 86850; 86900; 86901; A9270-GY; C1758; J0290; J0665; J1200; J2405; J3010; J3490; J7120; J7999